=== PATIENT | male | born 1975 | race African-American/Black ===

== ENCOUNTER 2023-10-07 02:57 | Emergency (ER) | payer SELFPAY ==
[2023-10-07 03:01] VITALS: BP 134/104; PULSE 75; RESP 18; TEMP 36.6; O2SAT 98; BMI 29.0
--- NOTE | 2023-10-07 03:08 | PC.NURSE ---
pt states he was using some weather stripping and had a piece of the plastic piece nieto left middle finger 2 days ago. Now states pain, redness and swelling is increasing. States he took tylenol and motrin with no relief.
--- NOTE | 2023-10-07 03:18 | XR_ITS ---
The [address] [address] Patient Name: NHI NUÑEZ MRN: [id number] date: 1975 Sex: M Assigned Patient Location: ED.MAIN Current Patient Location: ED.MAIN Accession/Order Number: [id number] Exam Date: 10/07/2023 03:34 Report Date: 10/07/2023 03:55 At the request of: EVIE GUILLERMO Procedure: XR hand LT min 3V EXAM: XR hand LT min 3V HISTORY: rule out foreign body, distal adjacent to the nail COMPARISON: None. TECHNIQUE: 3 views of the left hand were obtained. FINDINGS: No acute fracture or dislocation is seen. The joint spaces are preserved. No definite retained foreign body is seen. XR/XR hand LT min 3V IMPRESSION: 1. No acute osseous abnormality or definite radiopaque foreign body is seen about the left hand or fingers. Electronically authenticated by: Dolly ANN Date: 10/07/2023 03:55
--- NOTE | 2023-10-07 03:21 | ED.UPPEXIN1 ---
HPI - Extremity Injury (Upper) General Chief Complaint: Extremity Injury, Upper Stated Complaint: LEFT HAND SWELLING Time Seen by Provider: 10/07/23 03:14 Source: patient Mode of arrival: walk-in Limitations: no limitations History of Present Illness HPI narrative: 48-year-old male presents for pain and swelling of the left middle finger. Two days ago he was putting some weather stripping on a doorway and a piece of it went under his cuticle. He pulled it out. Since then it's become red and swollen. He's had no drainage. It's throbbing and continuous and moderate. Related Data Previous Rx's Medication Instructions Recorded cephalexin 500 mg capsule 500 mg PO TID 7 days #21 caps 10/07/23 Allergies Allergy/AdvReac Type Severity Reaction Status Date / Time No Known Drug Allergies Allergy Verified 10/07/23 03:03 Review of Systems ROS Narrative A ten point review of systems is negative except as noted above. PFSH PFSH Social History Smoking status: Current every day smoker Exam Narrative Exam Narrative: Nurses note and vital signs reviewed and patient is not hypoxic. General: The patient appears well and in no apparent distress. Patient is resting comfortably on cart. Skin: Warm, dry, no pallor noted. There is no rash noted. Head: Normocephalic, atraumatic Eye: Normal conjunctiva, no drainage Ears, Nose, Mouth, and Throat: oral mucosa is moist. Nares patent. Cardiovascular: Regular Rate and Rhythm Respiratory: Patient is in no distress, no accessory muscle use, lungs are clear to auscultation, no wheezing, rales or rhonchi Back: non-tender GI: soft and nontender Musculoskeletal: left 3rd finger has swelling and erythema at the base of the nail. There is some erythema on the finger itself and the DIP and PIP have good range of motion. Neurological: A&O, normal speech Psychiatric: Cooperative Constitutional Vital Signs, click to edit/add: Last Vital Signs Temp 97.8 F 10/07/23 03:01 Pulse 75 10/07/23 03:01 Resp 18 10/07/23 03:01 BP 134/104 H 10/07/23 03:01 Pulse Ox 98 10/07/23 03:01 O2 Del Method Room Air 10/07/23 03:01 Course Vital Signs Vital signs: Vital Signs Temperature 97.8 F 10/07/23 03:01 Pulse Rate 75 10/07/23 03:01 Respiratory Rate 18 10/07/23 03:01 Blood Pressure 134/104 H 10/07/23 03:01 Pulse Oximetry 98 10/07/23 03:01 Oxygen Delivery Method Room Air 10/07/23 03:01 Temperature 97.8 F 10/07/23 03:01 Pulse Rate 75 10/07/23 03:01 Respiratory Rate 18 10/07/23 03:01 Blood Pressure 134/104 H 10/07/23 03:01 Pulse Oximetry 98 10/07/23 03:01 Oxygen Delivery Method Room Air 10/07/23 03:01 MDM - Extremity Injury (Upper) MDM Narrative Medical decision making narrative: the following procedure was performed by me. Finger block was applied with one percent lidocaine without epinephrine resulting in complete skin anesthesia. The paronychia was then cleansed with Betadine and using a #11 blade the eponychia was raised and purulent material was extracted. No consultations and he tolerated the procedure well. Differential Diagnosis Differential diagnosis: Likely other (paronychia, cellulitis) Imaging Data hand x-ray: My impression: x-ray of the hand on my interpretation shows no foreign body Discharge Plan Discharge Chief Complaint: Extremity Injury, Upper Clinical Impression: Paronychia Patient Disposition: Home, Self-Care Time of Disposition Decision: 03:46 Condition: Good Mode of Transportation: Private Vehicle Prescriptions / Home Meds: New cephalexin 500 mg capsule 500 mg PO TID 7 Days Qty: 21 0RF Instructions: Paronychia (ED) Additional Instructions: Warm soaks for ten minutes four times a day Stand Alone Forms: Portal Instructions Referrals: Physician,Non-Staff, MD [Primary Care Provider] - 1 week
[2023-10-07] MEDS: LIDOCAINE HCL 1% 100 MG/10 ML MDV INJ (03:30)
--- NOTE | 2023-10-07 03:47 | PC.NURSE ---
finger cleansed and lanced by dr swan
[2023-10-07] MEDS: ADACEL DIPH,PERTUSS(ACELL),TET VAC/PF 0.5 ML ADULT SYRINGE IM (03:54)
== END 2023-10-07 03:58 | disposition home or self-care (01) ==
PROVIDERS: Emergency Provider Emergency Medicine
DX: L03.012 Cellulitis of left finger (principal); F17.210 Nicotine dependence, cigarettes, uncomplicated; Z23 Encounter for immunization
CPT/HCPCS: 10060; 73130; 90471; 90715; 99284

== ENCOUNTER 2024-01-20 23:05 | Emergency (ER) | payer SELFPAY ==
[2024-01-20 23:06] VITALS: BP 146/93; PULSE 78; TEMP 37.2; O2SAT 97; BMI 29.0
--- OUTSIDE RECORDS SUMMARY | 2024-01-20 23:13 | XMS_ITS | CCD ---
Author Organization [facility] Care Team Providers Care Director Internal Control Name Role Phone REQUEST, DR NONE LISTED Primary Care Unavaila BRAD Vicente Admitting Unavailable BRAD SORIANO Attending Unavailable ARNOLDO LITTLEJOHN Consulting Unavailable MARANDA APONTE Consulting Unavailable Rosa Lopez Unavailable NO PCP, NO PCP Primary Care Unavailable JEVON GONZALEZ Attending Unavailable Medications Current Medications Medication Drug Class(es) Dates Sig (Normalized) Sig (Original) clindamycin 300 mg oral capsule (1 source) Lincosamide Antibacterial Start: 01-11-2023 take 1 capsule by mouth every eight hours Clindamycin HCl 300 MG 1 cap(s) Orally tid for 10 day(s) Dec, Active escitalopram 10 mg oral tablet (2 sources) Serotonin Reuptake Inhibitor Escitalopram Oxalate 10 MG 1 tablet Orally as needed for 30 days Active naproxen sodium 220 mg oral tablet (1 source) Nonsteroidal Anti-inflammatory Drug take 1 tablet by mouth every twelve hours at mealtime as needed Aleve 220 MG 1 tablet with food or milk as needed Orally every 12 hrs Active OLANZapine 7.5 mg oral tablet (2 sources) Atypical Antipsychotic take 1 tablet by mouth every twelve hours ZyPREXA 15 MG 1 tablet Orally BID Not-Taking OLANZapine 7.5 M G Oral for 30 Days Active predniSONE 20 mg oral tablet (1 source) Start: 01-11-2023 take 1 tablet by mouth every twelve hours predniSONE 20 MG 1 tablet Orally bid for 5 day(s) Dec, Active sulfamethoxazole 800 mg / trimethoprim 160 mg oral tablet (1 source) Dihydrofolate Reductase Inhibitor Antibacterial, Sulfonamide Antimicrobial Sulfamethoxazole -Trimethoprim 800-160 MG TAKE 1 TABLET BY MOUTH IN THE MORNING AND 1 TABLET BEFORE BEDTIME. DO ALL THIS FOR 7 DAYS. Oral for 7 Days Active Completed/Discontinued Medications Medication Drug Class(es) Dates Sig (Normalized) Sig (Original) FLUoxetine 20 mg oral capsule (1 source) Serotonin Reuptake Inhibitor take 1 capsule by mouth once daily in the evening FLUoxetine HCl 20 MG TAKE 1 CAPSULE BY MOUTH EVERY DAY IN THE EVENING Oral for 30 Days Not-Taking lithium carbonate 150 mg oral capsule (1 source) take 1 capsule by mouth twice daily [facility] [place] Carbonate 150 MG TAKE 1 CAPSULE BY MOUTH TWICE A DAY Oral for 30 Days Not-Taking Problems Problem Classification Problem Date Documented Da te Episodic/Chronic Administrative/social admission (1 source) Encounter for pre-employment examination Episodic Disorders of teeth and jaw (3 sources) Other specified disorders of teeth and supporting structures; Translations: [Toothache] Onset: 12-17-2023 Episodic Other aftercare (1 source) Other usp (current) drug therapy; Translations: [OTH CORRECTION CURRENT DRUG THERAPY] Onset: 04-11-2022 Episodic Other connective tissue disease (3 sources) Other specified soft tissue disorders; Translations: [OTHER SPEC SOFT TISSUE DISORDERS] Onset: 04-08-2022 Episodic Residual codes; unclassified (1 source) Localized edema; Translations: [LOCALIZED EDEMA] Onset: 04-11-2022 Episodic Skin and subcutaneous tissue infections (1 source) Local infection of the skin and subcutaneous tissue, unspecified Episodic Substance-related disorders (3 sources) Nicotine dependence, cigarettes, uncomplicated; Translations: [Nicotine dependence] Onset: 04-11-2022 Chronic Results Test Name Value Interpretation Reference Range Facil ity BNPon 04-08-2022 Natriuretic peptide B (Bld) [Mass/Vol] 50.0 pg/mL Normal <=450.0 [facility] Comment on above: Performed By: #### B CARDIAC CARE NURSE, CMP #### [facility] [address] [address] [address] Wili Dai CBC AUTO DIFFon 04-08-2022 BASO # 0.0 103/ul Normal 0.0-0.[address] [facility] Comment on above: Performed By: #### C BC #### [facility] [address] [place] [address] Dr. Wili Dai Basophils/100 WBC (Bld) 0.4 % Normal 0.2-2.[address] [facility] Comment on above: Performed By: #### C BC #### [facility] [address] [place] [address] Dr. Wili Dai EO # 0.1 103/ul Normal 0.0-0.[address] [facility] Comment on above: Performed By: #### C BC #### [facility] [address] [place] [address] Dr. Wili Dai Eosinophils/100 WBC (Bld) 1.4 % Normal 0.9-7.[address] [facility] Comment on above: Performed By: #### C BC #### [facility] [address] [place] [address] Dr. Wili Dai Erythrocyte distribution width (RBC) [Ratio] 13.2 % Normal 11.0-15.[address] [facility] Comment on above: Performed By: #### C BC #### [facility] [address] [place] [address] Dr. Wili Dai Hematocrit (Bld) [Volume fraction] 41.9 % Critically low 42.0-54.[address] [facility] Comment on above: Performed By: #### C BC #### [facility] [address] [place] [address] Dr. Wili Dai Hemoglobin (Bld) [Mass/Vol] 13.8 g/dL Critically low 14.0-18.[address] [facility] Comment on above: Performed By: #### C BC #### [facility] [address] [place] [address] Dr. Wili Dai IG # 0.04 10e3/ul Critically high 0.00-0.03 [facility] Comment on above: Performed By: #### C BC #### [facility] [address] [place] [address] Dr. Wili Dai IG % 0.5 % Normal 0.0-0.5 [facility] Comment on above: Performed By: #### C BC #### [facility] [address] [place] [address] Dr. Wili Dai LYMPH # 2.9 103/ul Normal 1.2-3.8 [facility] Comment on above: Performed By: #### C BC #### [facility] [address] [place] [address] Dr. Wili Dai Lymphocytes/100 WBC (Bld) 39.5 % Normal 20.5-60.0 [facility] Comment on above: Performed By: #### C BC #### [facility] [address] [place] [address] Dr. Wili Dai MANUAL DIFF REQ NO Normal [facility] Comment on above: Performed By: #### C BC #### [facility] [address] [place] [address] Dr. Wili Dai MCH (RBC) [Entitic mass] 30.2 pg Normal 25.9-34.0 [facility] Comment on above: Performed By: #### C BC #### [facility] [address] [place] [address] Dr. Wili Dai MCHC (RBC) [Mass/Vol] 32.9 g/dL Normal 29.9-35.2 [facility] Comment on above: Performed By: #### C BC #### [facility] [address] [place] [address] Dr. Wili Dai MCV (RBC) [Entitic vol] 91.7 fL Normal 80.0-94.0 [facility] Comment on above: Performed By: #### C BC #### [facility] [address] [place] [address] Dr. Wili Dai MONO # 0.4 103/ul Normal 0.3-0.8 [facility] Comment on above: Performed By: #### C BC #### [facility] [address] [place] [address] Dr. Wili Dai Monocytes/100 WBC (Bld) 5.0 % Normal 1.7-12.0 [facility] Comment on above: Performed By: #### C BC #### [facility] [address] [place] [address] Dr. Wili Dai NEUT # 3.9 103/ul Normal 1.4-6.5 [facility] Comment on above: Performed By: #### C BC #### [facility] [address] [place] [address] Dr. Wili Dai Neutrophils/100 WBC (Bld) 53.2 % Normal 43.0-75.[address] [facility] Comment on above: Performed By: #### C BC #### [facility] [address] [address] [address] Wili Dai Platelet mean volume (Bld) [Entitic vol] 8.8 fL Critically low 9.5-13.[address] [facility] Comment on above: Performed By: #### C BC #### [facility] [address] [address] [address] Wili Dai PLT 247 103/ul Normal 150-[address] [facility] Comment on above: Performed By: #### C BC #### [facility] [address] [address] [address] Wili aDi RBC 4.57 106/ul Critically low 4.70-6.10 [facility] Comment on above: Performed By: #### C BC #### [facility] [address] [address] [address] Wili Dai WBC 7.4 103/ul Normal 4.0-11.[address] [facility] Comment on above: Performed By: #### C BC #### [facility] [address] [place] [address] Dr. Wili Dai PROF 14(COMP METB)on 022 Albumin [Mass/Vol] 3.4 g/dL Normal 3.4-5.0 [facility] Comment on above: Performed By: #### B CARDIAC CARE NURSE, CMP #### [facility] [address] [place] [address] Dr. Wili Dai Albumin/Globulin [Mass ratio] 1.1 {ratio} Normal [facility] Comment on above: Performed By: #### B CARDIAC CARE NURSE, CMP #### [facility] [address] [place] [address] Dr. Wili Dai ALP [Catalytic activity/Vol] 82 U/L Normal 46-[address] [facility] Comment on above: Performed By: #### B CARDIAC CARE NURSE, CMP #### [facility] [address] [place] [address] Dr. Wili Dai ALT [Catalytic activity/Vol] 58 U/L Normal 16-[address] [facility] Comment on above: Performed By: #### B CARDIAC CARE NURSE, CMP #### [facility] [address] [place] [address] Dr. Wili aDi Anion gap [Moles/Vol] 9.1 mmol/L Normal [facility] Comment on above: Performed By: #### B CARDIAC CARE NURSE, CMP #### [facility] [address] [address] [address] Wili Dai AST [Catalytic activity/Vol] 35 U/L Normal 15-[address] [facility] Comment on above: Performed By: #### B CARDIAC CARE NURSE, CMP #### [facility] [address] [place] [address] Dr. Wili Dai Bilirubin [Mass/Vol] 0.2 mg/dL Normal 0.2-1.[address] [facility] Comment on above: Performed By: #### B CARDIAC CARE NURSE, CMP #### [facility] [address] [place] [address] Dr. Wili Dai Calcium [Mass/Vol] 8.4 mg/dL Critically low 8.5-10.1 [facility] Comment on above: Performed By: #### B CARDIAC CARE NURSE, CMP #### [facility] [address] [place] [address] Dr. Wili Dai Chloride [Moles/Vol] 106 mmol/L Normal 98-107 [facility] Comment on above: Performed By: #### B CARDIAC CARE NURSE, CMP #### [facility] [address] [place] [address] Dr. Wili Dai CO2 [Moles/Vol] 29.8 mmol/L Normal 21.0-32.0 [facility] Comment on above: Performed By: #### B CARDIAC CARE NURSE, CMP #### [facility] [address] [place] [address] Dr. Wili Dai Creatinine [Mass/Vol] 1.08 mg/dL Normal 0.70-1.[address] [facility] Comment on above: Performed By: #### B CARDIAC CARE NURSE, CMP #### [facility] [address] [place] [address] Dr. Wili Dai EGFR-AF LITHUANIAN >60 Normal >=60 [facility] Comment on above: Performed By: #### B CARDIAC CARE NURSE, CMP #### [facility] [address] [place] [address] Dr. Wili Dai EGFR-NON AF LITHUANIAN >60 Normal >=[address] [facility] Comment on above: Performed By: #### B CARDIAC CARE NURSE, CMP #### [facility] [address] [place] [address] Dr. Wiil Dai Globulin (S) [Mass/Vol] 3.0 g/dL Normal [facility] Comment on above: Performed By: #### B CARDIAC CARE NURSE, CMP #### [facility] [address] [place] [address] Dr. Wili Dai Glucose [Mass/Vol] 83 mg/dL Normal 74-106 [facility] Comment on above: Performed By: #### B CARDIAC CARE NURSE, CMP #### [facility] [address] [place] [address] Dr. Wili Dai Potassium [Moles/Vol] 3.9 mmol/L Normal 3.5-5.[address] [facility] Comment on above: Performed By: #### B CARDIAC CARE NURSE, CMP #### [facility] [address] [place] [address] Dr. Wili Dai Protein [Mass/Vol] 6.4 g/dL Normal 6.4-8.2 [facility] Comment on above: Performed By: #### B CARDIAC CARE NURSE, CMP #### [facility] [address] [place] [address] Dr. Wili Dai Sodium [Moles/Vol] 141 mmol/L Normal 136-145 [facility] Comment on above: Performed By: #### B CARDIAC CARE NURSE, CMP #### [facility] [address] [place] [address] Dr. Wili Dai Urea nitrogen [Mass/Vol] 11.0 mg/dL Normal 7.0-18.[address] [facility] Comment on above: Performed By: #### B CARDIAC CARE NURSE, CMP #### [facility] [address] [place] [address] Dr. Wili Dai Urea nitrogen/Creatinine [Mass ratio] 10.2 mg/mg Normal [facility] Comment on above: Performed By: #### B CARDIAC CARE NURSE, CMP #### [facility] [address] [address] [address] Wili Dai US FELIPE DOP LEG BILon 022 US FELIPE DOP LEG LORNA EXAM: US FELIPE DOP LEG LORNA HISTORY: This is a 46-year-old with bilateral leg swelling and tingling for the past 3 days. COMPARISON: None. TECHNIQUE: Multiple sonographic images of the deep veins of both lower extremities were obtained, supplemented with Doppler. FINDINGS: The deep veins of both lower extremities are fairly well-visualized the groin to the mid calf. No filling defect is identified to indicate a thrombus. There is normal compression augmentation of flow throughout both lower extremities. The saphenous veins are also patent. IMPRESSION: Unremarkable study. There is no direct or indirect evidence of deep vein thrombosis in the lower extremities at this time. Electronically authenticated by: MARANDA APONTE Date: 2022-04-08 20:29 Normal [facility] Vital Signs Date Time Vital Sign Value Performing Clinician Facility 07-14-2023 16:50-0400 Body height 187.96 cm Rosa Jessica Other [facility] Other 07-14-2023 16:50-0400 Body mass index (BMI) [Ratio] 30.63 kg/m2 Rosa Jessica Other [facility] Other 07-14-2023 16:50-0400 Body temperature 99.4 [degF] Rosa Lopez Other [facility] Other 07-14-2023 16:50-0400 Body weight 108.23 kg Rosa Lopez Other [facility] Other 07-14-2023 16:50-0400 Diastolic blood pressure 84 mm[Hg] Rosa Lopez Other [facility] Other 07-14-2023 16:50-0400 Respiratory rate 18 /min Rosa Lopez Other [facility] Other 07-14-2023 16:50-0400 SaO2% (BldA) [Mass fraction] 96 % Rosa Lopez Other [facility] Other 07-14-2023 16:50-0400 Systolic blood pressure 123 mm[Hg] Rosa Jamesmond Other [facility] Other 01-11-2023 12:30-0400 Body height 187.96 cm Rosa Jamesmond Other [facility] Other 01-11-2023 12:30-0400 Body mass index (BMI) [Ratio] 30.17 kg/m2 Rosa Jamesmond Other [facility] Other 01-11-2023 12:30-0400 Body temperature 98.8 [degF] Rosa Jamesmond Other [facility] Other 01-11-2023 12:30-0400 Body weight 106.6 kg Rosa Jamesmond Other [facility] Other 01-11-2023 12:30-0400 Respiratory rate 18 /min Rosa Jamesmond Other [facility] Other 01-11-2023 12:30-0400 SaO2% (BldA) [Mass fraction] 97 % Rosa Jessica Other [facility] Other Encounters Encounter Date Encounter Type Care Provider Facility Start: 12-17-2023 End: 12-17-2023 Emergency department patient visit NO PCP NO PCP [facility] Start: 07-14-2023 End: 07-14-2023 ambulatory Rosa Jessica Other [facility] Other Start: 07-14-2023 Office outpatient vi sit 15 minutes Rosa Jessica [facility] Start: 01-11-2023 End: 01-11-2023 ambulatory Rosa Jessica Other [facility] Other Start: 01-11-2023 Office outpatient ne w 20 minutes Rosa Jessica [facility] Start: 04-08-2022 End: 04-08-[address] NONE LISTED REQUEST Facility: Payers Date Payer Category Payer Unknown [id number] 1975 Unknown [id number] 1975 Unknown [id number] 1959 Unknown [id number] Private Health Insurance [id number] Social History Date Type Detail Facility Unknown if ever smoked [facility] Other Sex Assigned At Sex Assigned At Bir th [facility] Other Evaluation note 07-14-2023 Note Date & Type Note Facility 07-14-2023 Evaluation note Encounter Date Diagnosis Assessment Notes Jun, Pre-employment examination (ICD-10 - Z02.1) [facility] Other Evaluation note 01-11-2023 Note Date & Type Note Facility 01-11-2023 Evaluation note Encounter Date Diagnosis Assessment Notes Dec, Skin lesion, infected (ICD-10 - L08.9) Drink plenty fluids, get plenty of rest. Stop the Bactrim, take the clindamycin and prednisone as prescribed until gone. Follow-up with your family physician if no improvement in 2 to 3 days Dec, Other MRSA home care material was printed [facility] Other History general Narrative - Reported 02-16-2018 Note Date & Type Note Facility 02-16-2018 History general N arrative - Reported Type Medical History Anxiety Medical History HX torn meniscus Surgical History RT knee surgery: torn meniscus x2 1998 Surgical History rotator cuff tear repair Hospitalization History [address] [place] [address] [place] [facility] vatFebruary 2018 [facility] Other Summary Purpose Family History No Family History Records FoundNo Family History Records Found Advance Directives No Advanced Directives Records FoundNo Advanced Directives Records Found Additional Source Comments (unrecognized sect ion and content) No Status Records FoundNo Status Records Found INFORMATION SOURCE (unrecogn ized section and content) DATE CREATED AUTHOR 04/11/2022 [facility] DATE CREATED AUTHOR AUTHOR'S ORGANIZ ATION 12/17/2023 [facility] REASON FOR VISIT (unrecogniz ed section and content) ALLERGIC REACTION TO MEDSPHY SICAL FOR RECORDS PERTAINING TO PATIENTS WHO ARE OR HAVE BEEN ENROLLED IN A CHEMICAL DEPENDENCY/SUBSTANCEABUSE PROGRAM, SOME INFORMATION MAY BE OMITTED. This clinical summary was aggregated from multiple sources. Caution should be exercised in using it in the provision of clinical care. This summary normalizes information from multiple sources, and as a consequence, information in this document may materially change the coding, format and clinical context of patient data. In addition, data may be omitted in some cases. CLINICAL DECISIONS SHOULD BE BASED ON THE PRIMARY CLINICAL RECORDS. [facility] provides no warranty or guarantee of the accuracy or completeness of information in this document.
--- NOTE | 2024-01-20 23:27 | ED_ITS ---
HPI - Psych General Chief Complaint: Psychiatric Symptoms Stated Complaint: SUICIDE Time Seen by Provider: 01/20/24 23:21 Source: Reports patient and EMR Mode of arrival: ambulance Limitations: Reports no limitations History of Present Illness HPI Narrative: history of mental illness. States he use to take medication in the past but did not like how it made him feel. [place] it clouded his judgement. Usually smokes marijuana to self medicate. has auditory hallucinations. Wont elaborate what changed today resulting in his coming to the ED via [facility] no reported history of suicidal or homicidal thoughts. Patient is pacing in his room Related Data Allergies Allergy/AdvReac Type Severity Reaction Status Date / Time No Known Drug Allergies Allergy Verified 01/20/24 23:10 Review of Systems ROS Status of ROS 10 or more systems reviewed and unremark able except as noted in history and below [facility] PFS Social History Smoking status: Current every day smoker Exam Constitutional Vital Signs, click to edit/add: Last Vital Signs Temp 99 F 01/20/24 23:06 Pulse 87 01/21/24 00:42 Resp 16 01/21/24 00:42 BP 146/93 H 01/20/24 23:06 Pulse Ox 97 01/20/24 23:06 O2 Del Method Room Air 01/20/24 23:06 Common normals: average body habitus, oriented x3, no limitations, healthy appearing, alert and well nourished [facility] Common normals: normocephalic and head/scalp atraumatic Eye Common normals: EOMs intact bilaterally and conjunctivae normal Respiratory Common normals: normal respiratory effort, no retractions, no use of accessory muscles and clear to auscultation bilaterally Cardio Common normals: regular rate, regular rhythm, S1 normal heart sound and S2 normal heart sound Extremity Common normals: normal to inspection and full ROM Neuro Common normals: oriented x3, CN's II-XII intact bilaterally, moves all extremities and no focal motor deficits Psych Activity/motor behavior: appropriate eye contact Mood and affect: depressed mood Course Vital Signs Vital signs: Vital Signs Temperature 99 F 01/20/24 23:06 Pulse Rate 78 01/20/24 23:06 Respiratory Rate 18 01/20/24 23:06 Blood Pressure 146/93 H 01/20/24 23:06 Pulse Oximetry 97 01/20/24 23:06 Oxygen Delivery Method Room Air 01/20/24 23:06 Temperature 99 F 01/20/24 23:06 Pulse Rate 87 01/21/24 00:42 Respiratory Rate 16 01/21/24 00:42 Blood Pressure 146/93 H 01/20/24 23:06 Pulse Oximetry 97 01/20/24 23:06 Oxygen Delivery Method Room Air 01/20/24 23:06 MDM - Psych MDM Narrative Medical decision making narrative: patient presents with acute nonspecified psychosis. Hearing voices and responding to them. Given Ativan in the department because he was not able to sit still and was pacing. Patient accepted at [address] Lab Data Labs: Lab Results 01/20/24 01/20/24 Range/Units 22:39 23:25 WBC 13.4 H (4.0-11.0) 10^3/uL RBC 4.43 L (4.70-6.10) 10^6/uL Hgb 13.7 L (14.0-18.0) g/dL Hct 42.4 (42.0-54.0) % MCV 95.7 H (80.0-94.0) fL MCH 30.9 (25.9-34.0) pg MCHC 32.3 (29.9-35.2) g/dL RDW 12.4 (11.0-15.0) % Plt Count 232 (150-450) 10^3/uL MPV 9.5 (9.5-13.5) fL Neut % (Auto) 68.1 (43.0-75.0) % Lymph % (Auto) 25.6 (20.5-60.0) % [place] % (Auto) 5.7 (1.7-12.0) % Eos % (Auto) 0.1 L (0.9-7.0) % Baso % (Auto) 0.2 (0.2-2.0) % Neut # (Auto) 9.1 H (1.4-6.5) 10^3/uL Lymph # (Auto) 3.4 (1.2-3.8) 10^3/uL [place] # (Auto) 0.8 (0.3-0.8) 10^3/uL Eos # (Auto) 0.0 (0.0-0.7) 10^3/uL Baso # (Auto) 0.0 (0.0-0.1) 10^3/uL Abs Immat Gran (auto) 0.04 H (0.00-0.03) 10^3/uL Imm/Tot Granulo (auto) 0.3 (0.0-0.5) % Sodium 135 L (136-145) mmol/L Potassium 3.8 (3.5-5.1) mmol/L Chloride 99 (98-107) mmol/L Carbon Dioxide 25.1 (21.0-32.0) mmol/L Anion Gap 14.7 BUN 10.0 (7.0-18.0) mg/dL Creatinine 1.18 (0.70-1.30) mg/dL Est GFR ( Amer) >60 (>=60) Est GFR (Non-Af Amer) >60 (>=60) BUN/Creatinine Ratio 8.5 Glucose 107 H (74-106) mg/dL Calcium 9.6 (8.5-10.1) mg/dL Salicylates 4.5 (<=19.9) mg/dL Urine Opiates Screen Negative (NEGATIVE) Ur Buprenorphine Scrn Negative (NEGATIVE) Ur Oxycodone Screen Negative (NEGATIVE) Urine Methadone Screen Negative (NEGATIVE) Acetaminophen <2.8 L (10.0-30.0) ug/mL Ur Barbiturates Screen Negative (NEGATIVE) U Tricyclic Antidepress Negative (NEGATIVE) Ur Phencyclidine Scrn Negative (NEGATIVE) Ur Amphetamines Screen Negative (NEGATIVE) U Methamphetamines Scrn Negative (NEGATIVE) U Benzodiazepines Scrn Negative (NEGATIVE) Urine Cocaine Screen Negative (NEGATIVE) U Cannabinoids Screen Positive A (NEGATIVE) Ethanol Quant <3 mg/dL Discharge Plan Discharge Chief Complaint: Psychiatric Symptoms Clinical Impression: Acute psychosis Patient Disposition: [facility]
--- NOTE | 2024-01-20 23:31 | ECG_ITS ---
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
[2024-01-20 23:45] LABS: Basophils Percent Auto 0.2 % (0.2-2.0); Eosinophils Percent Auto 0.1 % (0.9-7.0); Hematocrit 42.4 % (42.0-54.0); Hemoglobin 13.7 g/dL (14.0-18.0); Immature Granulocytes Abs Auto 0.04 10^3/uL (0.00-0.03); Immature Granulocytes Pct Auto 0.3 % (0.0-0.5); Lymphocytes Absolute Auto 3.4 10^3/uL (1.2-3.8); Lymphocytes Percent Auto 25.6 % (20.5-60.0); Mean Corpuscular HGB Conc 32.3 g/dL (29.9-35.2); Mean Corpuscular Hemoglobin 30.9 pg (25.9-34.0); Mean Corpuscular Volume 95.7 fL (80.0-94.0); Mean Platelet Volume 9.5 fL (9.5-13.5); Monocytes Absolute Auto 0.8 10^3/uL (0.3-0.8); Monocytes Percent Auto 5.7 % (1.7-12.0); Neutrophils Absolute Auto 9.1 10^3/uL (1.4-6.5); Neutrophils Percent Auto 68.1 % (43.0-75.0); Platelet Count 232 10^3/uL (150-450); Red Blood Count 4.43 10^6/uL (4.70-6.10); Red Cell Distribution Width 12.4 % (11.0-15.0); White Blood Count 13.4 10^3/uL (4.0-11.0)
[2024-01-20 23:46] LABS: Amphetamine Screen Urine NEGATIVE (NEGATIVE); Barbiturates Screen Urine NEGATIVE (NEGATIVE); Benzodiazepines Screen Urine NEGATIVE (NEGATIVE); Buprenorphine Screen Urine NEGATIVE (NEGATIVE); Cannabinoid Screen Urine POSITIVE (NEGATIVE); Cocaine Screen Urine NEGATIVE (NEGATIVE); Methadone Screen Urine NEGATIVE (NEGATIVE); Methamphetamines Screen Urine NEGATIVE (NEGATIVE); Opiate Screen Urine NEGATIVE (NEGATIVE); Oxycodone Screen Urine NEGATIVE (NEGATIVE); Phencyclidine Screen Urine NEGATIVE (NEGATIVE); Tricyclic Antidepressant Urine NEGATIVE (NEGATIVE)
[2024-01-20] MEDS: LORAZEPAM 1 MG TABLET 2 MG PO (23:59)
[2024-01-21 00:01] LABS: Acetaminophen <2.8 ug/mL (10.0-30.0); Anion Gap 14.7; BUN Creatinine Ratio 8.5; Calcium 9.6 mg/dL (8.5-10.1); Carbon Dioxide 25.1 mmol/L (21.0-32.0); Chloride 99 mmol/L (98-107); Estimated GFR (African America >60 (>=60); Estimated GFR (Non-African Ame >60 (>=60); Ethanol <3 mg/dL; Glucose 107 mg/dL (74-106); Potassium 3.8 mmol/L (3.5-5.1); Salicylate 4.5 mg/dL (<=19.9); Sodium 135 mmol/L (136-145)
[2024-01-21 00:42] VITALS: PULSE 79; PULSE 87
== END 2024-01-21 03:02 ==
PROVIDERS: Emergency Provider Internal Medicine
DX: F23 Brief psychotic disorder (principal); F17.210 Nicotine dependence, cigarettes, uncomplicated
CPT/HCPCS: 36415; 80048; 80179; 80307; 80320; 80329; 85025; 93005; 99285

== ENCOUNTER 2024-02-17 11:15 | Emergency (ER) | payer OTHER, SELFPAY ==
[2024-02-17 11:20] VITALS: BP 150/90; PULSE 62; O2SAT 98; BMI 29.5
--- OUTSIDE RECORDS SUMMARY | 2024-02-17 11:27 | XMS_ITS | CCD ---
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 Name Role Phone REQUEST, DR NONE LISTED Primary Care Unavaila BRAD Vicente Admitting Unavailable BRAD SORIANO Attending Unavailable ARNOLDO LITTLEJOHN Consulting Unavailable MARANDA APONTE Consulting Unavailable Rosa Lopez Unavailable NO PCP, NO PCP Primary Care Unavailable JEVON GONZALEZ Attending Unavailable NON STAFF Primary Care Provider UnavailMD Aditya Omer Admit Provider [phone] MD Aditya Duarte Attending Provider [phone] John Gallegos Attending Unavailab Aditya Reynolds Admitting Unavailable NON STAFF Primary Care Unavailable Medications Current Medications Medication Drug Class(es) Dates Sig (Normalized) Sig (Original) ARIPiprazole 10 mg oral tablet (1 source) Atypical Antipsychotic Start: 01-24-2024 take 10 mg by mouth at bedtime Aripiprazole Active 10 MG PO Bedtime 15 15 January 24, 2024 12:00am clindamycin 300 mg oral capsule (1 source) [...] as needed Orally every 12 hrs Active [place] (No Known Home Meds) (1 source) Start: 02-19-2018 [place] (No Known Home Meds) Active February 19, 2018 12:00am predniSONE 20 mg oral tablet (1 source) Start: 01-11-2023 take 1 tablet by mouth every twelve hours predniSONE 20 MG 1 tablet Orally bid for 5 day(s) Dec, Active sulfamethoxazole 800 mg / trimethoprim 160 mg oral tablet (1 source) Dihydrofolate Reductase Inhibitor Antibacterial, Sulfonamide Antimicrobial Sulfamethoxazole- Trimethoprim 800-160 MG TAKE 1 TABLET BY MOUTH IN THE MORNING AND 1 TABLET BEFORE BEDTIME. DO ALL THIS FOR 7 DAYS. Oral for 7 Days Active traZODone hydrochloride 50 mg oral tablet (1 source) Serotonin Reuptake Inhibitor Start: 01-24-2024 take 50 mg by mouth once daily at bedtime Trazodone Active 50 MG PO Daily at bedtime 15 15 January 24, 2024 12:00am Completed/Discontinued Medications Medication Drug Class(es) Dates Sig [...] take 1 capsule by mouth twice daily [place] Carbonate 150 MG TAKE 1 CAPSULE BY MOUTH TWICE A DAY Oral for 30 Days Not-Taking OLANZapine 10 mg oral tablet (3 sources) Atypical Antipsychotic Start: 02-21-2018 End: 01-21-2024 take 10 mg by mouth once daily at bedtime Olanzapine Discontinued 10 MG PO Daily at bedtime February 21, 2018 12:00am January 21, 2024 5:19am take 1 tablet by laura every twelve hours ZyPREXA 15 MG 1 tablet Orally BID Not-Taking OLANZapine 7.5 M G Oral for 30 Days Active Problems Problem Classification Problem Date Documented Date Episodic/Chronic Administrative/social admission (1 source) Encounter for pre-employment examination Episodic Disorders of teeth and jaw (3 sources) Other specified disorders of teeth and supporting structures; Translations: [Toothache] Onset: 12-17-2023 Episodic Other aftercare (1 source) 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; Translations: [OTH FDC CURRENT DRUG THERAPY] Onset: 04-11-2022 Episodic Other connective tissue disease (3 sources) Other specified soft tissue disorders; Translations: [OTHER SPEC SOFT TISSUE DISORDERS] Onset: 04-08-2022 Episodic Residual codes; unclassified (1 source) Localized edema; Translations: [LOCALIZED EDEMA] Onset: 04-11-2022 Episodic Schizophrenia and other psychotic disorders (4 sources) Psychotic disorder; Translations: [Unspecified psychosis not due to a substance or known physiological condition] Onset: 01-21-2024 08-30-2023 Chronic Skin and subcutaneous tissue infections (1 source) Local infection of the skin and subcutaneous tissue, unspecified Episodic Substance-related disorders (3 sources) Nicotine dependence, cigarettes, uncomplicated; Translations: [Nicotine dependence] Onset: 04-11-2022 Chronic Results Test Name Value Interpretation Reference Range Facility Alanine aminotransferase [En zymatic activity/volume] in Serum or PlasmaOrdered By: Aditya Duarte on 01-22-2024 ALT [Catalytic activity/Vol] 17 U/L 7-52 [facility] Albumin [Mass/volume] in Ser um or Plasma by Bromocresol green (BCG) dye binding methoOrdered By: Aditya Duarte on 01-22-2024 Albumin BCG dye [Mass/Vol] 4.1 g/dL 3.5-5.7 [facility] Alkaline phosphatase [Enzyma tic activity/volume] in Serum or PlasmaOrdered By: Aditya Duarte on 01-22-2024 ALP [Catalytic activity/Vol] 92 U/L 34-104 [facility] Aspartate aminotransferase [ Enzymatic activity/volume] in Serum or PlasmaOrdered By: Aditya Duarte on 01-22-2024 AST [Catalytic activity/Vol] 18 U/L 13-39 [facility] Bilirubin.direct [Mass/volum e] in Serum or PlasmaOrdered By: Aditya Duarte on 01-22-2024 Bilirubin.direct [Mass/Vol] 0.10 mg/dL 0.03-0.18 [facility] Bilirubin.total [Mass/volume ] in Serum or PlasmaOrdered By: Aditya Duarte on 01-22-2024 Bilirubin [Mass/Vol] 0.4 mg/dL 0.3-1.0 [facility] Cholesterol [Mass/volume] in Serum or PlasmaOrdered By: Aditya Duarte on 01-22-2024 Cholesterol [Mass/Vol] 114 mg/dL 140-200 [facility] Comment on above: Chol less than 200 m g/dl low riskChol 201-239 mg/dl borderline riskChol 240 mg/dl and greater high risk Cholesterol in LDL Calc [Mas s/Vol]Ordered By: Aditya Duarte on 01-22-2024 Cholesterol in LDL [Mass/Vol] 54 mg/dL 0-100 [facility] Comment on above: LDL ATP III CLASSIFI CATIONLDL less than 100 mg/dL OptimalLDL 100-129 mg/dL Near or above optimalLDL 130-159 mg/dL Borderline highLDL 160-189 mg/dL HighLDL greater than 189 mg/dL Very high Cholesterol in VLDL Calc [Ma ss/Vol]Ordered By: Aditya Duarte on 01-22-2024 Cholesterol in VLDL [Mass/Vol] 25 mg/dL [facility] Globulin Calc (S) [Mass/Vol] Ordered By: Aditya Duarte on 01-22-2024 Globulin (S) [Mass/Vol] 2.5 g/dL [facility] Hepatic Panelon 01-22-2024 Albumin [Mass/Vol] 4.1 g/dL Normal 3.5-5.7 [facility] Comment on above: Performed By: #### T SH3 wRFLX, [id number], LIPID, HEPATIC #### [facility] [address] [place] [address] [place] Albumin/Globulin [Mass ratio] 1.6 {ratio} Normal [facility] Comment on above: Performed By: #### T SH3 wRFLX, [id number], LIPID, HEPATIC #### [facility] [address] [place] [id number] [place] ALP [Catalytic activity/Vol] 92 U/L Normal 34-104 [facility] Comment on above: Performed By: #### T SH3 wRFLX, [id number], LIPID, HEPATIC #### [facility] [address] [place] [id number] [place] ALT [Catalytic activity/Vol] 17 U/L Normal 7-52 [facility] Comment on above: Performed By: #### T SH3 wRFLX, [id number], LIPID, HEPATIC #### [facility] [address] [place] [id number] [place] AST [Catalytic activity/Vol] 18 U/L Normal 13-39 [facility] Comment on above: Performed By: #### T SH3 wRFLX, [id number], LIPID, HEPATIC #### [address] Bilirubin [Mass/Vol] 0.4 mg/dL Normal 0.3-1.0 [facility] Comment on above: Performed By: #### T SH3 wRFLX, [id number], LIPID, HEPATIC #### [address] Bilirubin,Indirect 0.3 mg/dL Normal [facility] Comment on above: Performed By: #### T SH3 wRFLX, [id number], LIPID, HEPATIC #### [address] Bilirubin.indirect [Mass/Vol] 0.10 mg/dL Normal 0.03-0.18 [facility] Comment on above: Performed By: #### T SH3 wRFLX, [id number], LIPID, HEPATIC #### [address] Globulin (S) [Mass/Vol] 2.5 g/dL Normal [facility] Comment on above: Performed By: #### T SH3 wRFLX, [id number], LIPID, HEPATIC #### [address] Protein [Mass/Vol] 6.6 g/dL Normal 6.4-8.9 [facility] Comment on above: Performed By: #### T SH3 wRFLX, [id number], LIPID, HEPATIC #### [address] Lipid Panelon 01-22-2024 Cholesterol [Mass/Vol] 114 mg/dL Low 140-200 [facility] Comment on above: Result Comment: Chol less than 200 mg/dl low risk Chol 201-239 mg/dl borderline risk Chol 240 mg/dl and greater high risk Performed By: #### T SH3 wRFLX, [id number], LIPID, HEPATIC #### [address] [place] [address] [place] Cholesterol in HDL [Mass/Vol] 34 mg/dL Normal 23-92 [facility] Comment on above: Result Comment: HDL CHOL ATP-III CLASSIFICATION Cardiovascular Risk HDL > or equal to 60 mg/dL LOW HDL < 40 mg/dL HIGH Performed By: #### T SH3 wRFLX, [id number], LIPID, HEPATIC #### [facility] [address] Cholesterol.total/Chol esterol in HDL [Mass ratio] 3.4 {ratio} Normal <5.0 [facility] Comment on above: Performed By: #### T SH3 wRFLX, [id number], LIPID, HEPATIC #### [facility] [address] LDL Cholesterol,Calculated 54 mg/dL Normal 0-100 [facility] Comment on above: Result Comment: LDL ATP III CLASSIFICATION LDL less than 100 mg/dL Optimal LDL 100-129 mg/dL Near or above optimal LDL 130-159 mg/dL Borderline high LDL 160-189 mg/dL High LDL greater than 189 mg/dL Very high Performed By: #### T SH3 wRFLX, [id number], LIPID, HEPATIC #### [facility] [address] [place] [address] [place] Triglyceride w/Reflex 129 mg/dL Normal 0-149 [facility] Comment on above: Result Comment: TRIG ATP III CLASSIFICATION TRIG less than 150 mg/dL Normal TRIG 150-199 mg/dL Borderline high TRIG 200-500 mg/dL High TRIG greater than 500 mg/dL Very high Standard traceable to the Center for Disease Conrtrol and Prevention (CDC) test method. Performed By: #### T SH3 wRFLX, [id number], LIPID, HEPATIC #### [facility] [address] [place] [id number] [place] VLDL CHOLESTEROL 25 mg/dL Normal [facility] Comment on above: Performed By: #### T SH3 wRFLX, [id number], LIPID, HEPATIC #### [facility] [address] [place] [id number] [place] Protein [Mass/volume] in Ser um or PlasmaOrdered By: Aditya Duarte on 01-22-2024 Protein [Mass/Vol] 6.6 g/dL 6.4-8.9 [facility] Serum or plasma albumin/glob ulin mass ratioOrdered By: Aditya Duarte on 01-22-2024 Albumin/Globulin [Mass ratio] 1.6 {ratio} [facility] Serum or plasma high density lipoprotein (HDL) cholesterol measurementOrdered By: Aditya Duarte on 01-22-2024 Cholesterol in HDL [Mass/Vol] 34 mg/dL 23-92 [facility] Comment on above: HDL CHOL ATP-III CLA SSIFICATION Cardiovascular RiskHDL > or equal to 60 mg/dL LOWHDL < 40 mg/dL HIGH Serum or plasma non-glucuron idated bilirubin measurement (mass/volume)Ordered By: Aditya Duarte on 01-22-2024 Bilirubin.indirect [Mass/Vol] 0.3 mg/dL [facility] Serum or plasma total choles terol/high density lipoprotein (HDL) cholesterol mass ratOrdered By: Aditya Duarte on 01-22-2024 Cholesterol.total/Chol esterol in HDL [Mass ratio] 3.4 {ratio} <5.0 [facility] Thyroid Stim Hormone w/Rflxo n 01-22-2024 Thyroid Stim Hormone w/Rflx 1.01 u[iU]/mL Normal 0.45-5.33 [facility] Comment on above: Performed By: #### T SH3 wRFLX, [id number], LIPID, HEPATIC #### [address] Thyrotropin [Units/volume] i n Serum or PlasmaOrdered By: Aditya Duarte on 01-22-2024 TSH Qn 1.01 m[IU]/L 0.45-5.33 [facility] Triglyceride [Mass/volume] i n Serum or PlasmaOrdered By: Aditya Duarte on 01-22-2024 Triglyceride [Mass/Vol] 129 mg/dL 0-149 [facility] Comment on above: TRIG ATP III CLASSIF ICATIONTRIG less than 150 mg/dL NormalTRIG 150-199 mg/dL Borderline highTRIG 200-500 mg/dL High TRIG greater than 500 mg/dL Very highStandard traceable to the Center for Disease Conrtrol and Prevention (CDC) test method. Vitamin D 25 Hydroxy Totalon 01-22-2024 Vitamin D 25 Hydroxy Total 12.0 ng/mL Low 30-100 [facility] Comment on above: Result Comment: TOM MIN D STATUS 25(OH)VITAMIN D RANGE (ng/mL) Deficient <20 Insufficient 20 to <30 Sufficient 30 to 100 Reference: Qian Rico, Julius MATOS, et al. Evaluation,treatment, and prevention of vitamin D deficiency; an Endocrine Society clinical practice guideline. JCEM. 2010; 96(7):1911-. PERFORMED BY: [facility] [address] [place] [address] PATHOLOGIST JOB COUNSELOR ALEXANDREA GUTHRIE M.D. Performed By: #### T SH3 wRFLX, [id number], LIPID, HEPATIC #### [facility] [address] Vitamin D+Metabolites [Mass/ volume] in Serum or PlasmaOrdered By: Aditya Duarte on 01-22-2024 Vitamin D+Metabolites [Mass/Vol] 12.0 ng/mL 30-100 [facility] Comment on above: VITAMIN D STATUS 25( [place])VITAMIN D RANGE (ng/mL) Deficient <20 Insufficient 20 to <30Sufficient 30 to 100Reference: Qian Rico, Julius MATOS, et al. Evaluation,treatment, and prevention of vitamin D deficiency; an Endocrine Society clinical practice guideline. JCEM. 2010; 96(7):1911-30. BNPon 04-08-2022 Natriuretic peptide B (Bld) [Mass/Vol] 50.0 pg/mL Normal <=450.0 [facility] Comment on above: Performed By: #### B ESCAPEMENT MAKER, CMP #### [facility] [address] [place] [address] [address] Wili Dai CBC AUTO DIFFon 04-08-2022 BASO # 0.0 103/ul Normal 0.0-0.1 [facility] Comment on above: Performed By: #### C BC #### [facility] [address] [place] [address] Dr. Wili Dai Basophils/100 WBC (Bld) 0.4 % Normal 0.2-2.0 [facility] Comment on above: Performed By: #### C BC #### [facility] [address] [place] [address] Dr. Wili Dai EO # 0.1 103/ul Normal 0.0-0.7 [facility] Comment on above: Performed By: #### C BC #### [facility] [address] [place] [address] Dr. Wili Dai Eosinophils/100 WBC (Bld) 1.4 % Normal 0.9-7.0 [facility] Comment on above: Performed By: #### C BC #### [facility] [address] [place] [address] Dr. Wili Dai Erythrocyte distribution width (RBC) [Ratio] 13.2 % Normal 11.0-15.0 [facility] Comment on above: Performed By: #### C BC #### [facility] [address] [place] [address] Dr. Wili Dai Hematocrit (Bld) [Volume fraction] 41.9 % Critically low 42.0-54.0 [facility] Comment on above: Performed By: #### C BC #### [facility] [address] [place] [address] Dr. Wili Dai Hemoglobin (Bld) [Mass/Vol] 13.8 g/dL Critically low 14.0-18.0 [facility] Comment on above: Performed By: #### C BC #### [facility] [address] [place] [address] Dr. Wili Dai IG # 0.04 10e3/ul Critically high 0.00-0.03 [facility] Comment on above: Performed By: #### C BC #### [facility] [address] [place] [address] Dr. Wili Dai IG % 0.5 % Normal 0.0-0.5 [facility] Comment on above: Performed By: #### C BC #### [facility] [address] [place] [address] Dr. Wili Dai LYMPH # 2.9 103/ul Normal 1.2-3.8 [facility] Comment on above: Performed By: #### C BC #### [facility] [address] [place] [address] Dr. Wili Dai Lymphocytes/100 WBC (Bld) 39.5 % Normal 20.5-60.0 [facility] Comment on above: Performed By: #### C BC #### [facility] [address] [place] [address] Dr. Wili Dai MANUAL DIFF REQ NO Normal [facility] Comment on above: Performed By: #### C BC #### [facility] [address] [place] [address] Dr. Wili Dai MCH (RBC) [Entitic mass] 30.2 pg Normal 25.9-34.0 [facility] Comment on above: Performed By: #### C BC #### [facility] [address] [place] [address] Dr. Wili Dai MCHC (RBC) [Mass/Vol] 32.9 g/dL Normal 29.9-35.2 [facility] Comment on above: Performed By: #### C BC #### [facility] [address] [place] [address] Dr. Wili Dai MCV (RBC) [Entitic vol] 91.7 fL Normal 80.0-94.0 [facility] Comment on above: Performed By: #### C BC #### [facility] [address] [place] [address] Dr. Wili Dai MONO # 0.4 103/ul Normal 0.3-0.8 [facility] Comment on above: Performed By: #### C BC #### [facility] [address] [place] [address] Dr. Wili Dai Monocytes/100 WBC (Bld) 5.0 % Normal 1.7-12.0 [facility] Comment on above: Performed By: #### C BC #### [facility] [address] [place] [address] Dr. Wili Dai NEUT # 3.9 103/ul Normal 1.4-6.5 [facility] Comment on above: Performed By: #### C BC #### [facility] [address] [place] [address] Dr. Wili Dai Neutrophils/100 WBC (Bld) 53.2 % Normal 43.0-75.0 [facility] Comment on above: Performed By: #### C BC #### [facility] [address] [place] [address] Dr. Wili Dai Platelet mean volume (Bld) [Entitic vol] 8.8 fL Critically low 9.5-13.5 [facility] Comment on above: Performed By: #### C BC #### [facility] [address] [place] [address] Dr. Wili Dai PLT 247 103/ul Normal 150-450 [facility] Comment on above: Performed By: #### C BC #### [facility] [address] [place] [address] Dr. Wili Dai RBC 4.57 106/ul Critically low 4.70-6.10 [facility] Comment on above: Performed By: #### C BC #### [facility] [address] [place] [address] Dr. Wili Dai WBC 7.4 103/ul Normal 4.0-11.0 [facility] Comment on above: Performed By: #### C BC #### [facility] [address] [place] [address] Dr. Wili Dai PROF 14(COMP METB)on 022 Albumin [Mass/Vol] 3.4 g/dL Normal 3.4-5.0 [facility] Comment on above: Performed By: #### B ESCAPEMENT MAKER, CMP #### [facility] [address] [place] [address] Dr. Wili Dai Albumin/Globulin [Mass ratio] 1.1 {ratio} Normal [facility] Comment on above: Performed By: #### B ESCAPEMENT MAKER, CMP #### [facility] [address] [place] [address] Dr. Wili Dai ALP [Catalytic activity/Vol] 82 U/L Normal 46-116 [facility] Comment on above: Performed By: #### B ESCAPEMENT MAKER, CMP #### [facility] [address] [place] [address] Dr. Wili Dai ALT [Catalytic activity/Vol] 58 U/L Normal 16-63 [facility] Comment on above: Performed By: #### B ESCAPEMENT MAKER, CMP #### [facility] [address] [place] [address] Dr. Wili Dai Anion gap [Moles/Vol] 9.1 mmol/L Normal [facility] Comment on above: Performed By: #### B ESCAPEMENT MAKER, CMP #### [facility] [address] [place] [address] Dr. Wili Dai AST [Catalytic activity/Vol] 35 U/L Normal 15-37 [facility] Comment on above: Performed By: #### B ESCAPEMENT MAKER, CMP #### [facility] [address] [place] [address] Dr. Wili Dai Bilirubin [Mass/Vol] 0.2 mg/dL Normal 0.2-1.0 [facility] Comment on above: Performed By: #### B ESCAPEMENT MAKER, CMP #### [facility] [address] [place] [address] Dr. Wili Dai Calcium [Mass/Vol] 8.4 mg/dL Critically low 8.5-10.1 [facility] Comment on above: Performed By: #### B ESCAPEMENT MAKER, CMP #### [facility] [address] [place] [address] Dr. Wili Dai Chloride [Moles/Vol] 106 mmol/L Normal 98-107 [facility] Comment on above: Performed By: #### B ESCAPEMENT MAKER, CMP #### [facility] [address] [place] [address] Dr. Wili Dai CO2 [Moles/Vol] 29.8 mmol/L Normal 21.0-32.0 [facility] Comment on above: Performed By: #### B ESCAPEMENT MAKER, CMP #### [facility] [address] [place] [address] Dr. Wili Dai Creatinine [Mass/Vol] 1.08 mg/dL Normal 0.70-1.30 [facility] Comment on above: Performed By: #### B ESCAPEMENT MAKER, CMP #### [facility] [address] [place] [address] Dr. Wili Dai EGFR-AF ISRAELI >60 Normal >=60 [facility] Comment on above: Performed By: #### B ESCAPEMENT MAKER, CMP #### [facility] [address] [address] [address] Wili Dai EGFR-NON AF ISRAELI >60 Normal >=60 [facility] Comment on above: Performed By: #### B ESCAPEMENT MAKER, CMP #### [facility] [address] [place] [address] Dr. Wili Dai Globulin (S) [Mass/Vol] 3.0 g/dL Normal [facility] Comment on above: Performed By: #### B ESCAPEMENT MAKER, CMP #### [facility] [address] [place] [address] Dr. Wili Dai Glucose [Mass/Vol] 83 mg/dL Normal 74-106 [facility] Comment on above: Performed By: #### B ESCAPEMENT MAKER, CMP #### [facility] [address] [place] [address] Dr. Wili Dai Potassium [Moles/Vol] 3.9 mmol/L Normal 3.5-5.1 [facility] Comment on above: Performed By: #### B ESCAPEMENT MAKER, CMP #### [facility] [address] [place] [address] Dr. Wili Dai Protein [Mass/Vol] 6.4 g/dL Normal 6.4-8.2 [facility] Comment on above: Performed By: #### B ESCAPEMENT MAKER, CMP #### [facility] [address] [place] [address] Dr. Wili Dai Sodium [Moles/Vol] 141 mmol/L Normal 136-145 [facility] Comment on above: Performed By: #### B ESCAPEMENT MAKER, CMP #### [facility] [address] [place] [address] Dr. Wili Dai Urea nitrogen [Mass/Vol] 11.0 mg/dL Normal 7.0-18.0 [facility] Comment on above: Performed By: #### B ESCAPEMENT MAKER, CMP #### [facility] [address] [address] [address] Wili Dai Urea nitrogen/Creatinine [Mass ratio] 10.2 mg/mg Normal [facility] Comment on above: Performed By: #### B ESCAPEMENT MAKER, CMP #### [facility] [address] [place], [place] [address] Dr. Wili Dai US FELIPE DOP LEG [...] by: MARANDA APONTE Date: 2022-04-08 20:29 Normal [facility] Vital Signs Date Time Vital Sign Value Performing Clinician Facility 01-24-2024 07:30-0400 Body temperature 97.3 [degF] [facility] 01-24-2024 07:30-0400 Diastolic blood pressure 88 mm[Hg] [facility] 01-24-2024 07:30-0400 Heart rate 78 /min [facility] 01-24-2024 07:30-0400 Respiratory rate 16 /min [facility] 01-24-2024 07:30-0400 SaO2% (BldA) [Mass fraction] 98 % [facility] 01-24-2024 07:30-0400 Systolic blood pressure 133 mm[Hg] [facility] 01-22-2024 15:15-0400 Body height 187.96 cm [facility] 01-22-2024 09:00-0400 Body weight 102.52 kg [facility] 07-14-2023 16:50-0400 Body height 187.96 cm Rosa Jessica Other [employer] Other 07-14-2023 16:50-0400 Body mass index (BMI) [Ratio] 30.63 kg/m2 Rosa Jessica Other [employer] Other 07-14-2023 16:50-0400 Body temperature 99.4 [degF] Rosa Jessica Other [employer] Other 07-14-2023 16:50-0400 Body weight 108.23 kg Rosa Jessica Other [employer] Other 07-14-2023 16:50-0400 Diastolic blood pressure 84 mm[Hg] Rosa Jessica Other [employer] Other 07-14-2023 16:50-0400 Respiratory rate 18 /min Rosa Jessica Other [employer] Other 07-14-2023 16:50-0400 SaO2% (BldA) [Mass fraction] 96 % Rosa Jessica Other [employer] Other 07-14-2023 16:50-0400 Systolic blood pressure 123 mm[Hg] Rosa Jessica Other [employer] Other 01-11-2023 12:30-0400 Body height 187.96 cm Rosa Jessica Other [employer] Other 01-11-2023 12:30-0400 Body mass index (BMI) [Ratio] 30.17 kg/m2 Rosa Jessica Other [employer] Other 01-11-2023 12:30-0400 Body temperature 98.8 [degF] Rosa Lopez Other [employer] Other 01-11-2023 12:30-0400 Body weight 106.6 kg Rosa Lopez Other [employer] Other 01-11-2023 12:30-0400 Respiratory rate 18 /min Rosa Lopez Other [employer] Other 01-11-2023 12:30-0400 SaO2% (BldA) [Mass fraction] 97 % Rosa Lopez Other [employer] Other Encounters Encounter Date Encounter Type Care Provider Facility Start: 01-21-2024 Non-patient / Non-visit [facility] Work Phone: Start: 01-21-2024 End: 01-24-2024 Evaluation and management of inpatient [place] Facility:[facility] Start: 01-21-2024 End: 01-24-2024 Evaluation and management of inpatient [facility] [place] [address] Work Phone: Start: 12-17-2023 End: 12-17-2023 Emergency department patient visit NO PCP NO PCP [facility] Start: 07-14-2023 End: 07-14-2023 ambulatory Rosa Lopez Other [employer] Other Start: 07-14-2023 Office outpatient visit 15 minutes Rosa Lopez [facility] Start: 01-11-2023 End: 01-11-2023 ambulatory Rosa Lopez Other [employer] Other Start: 01-11-2023 Office outpatient ne w 20 minutes Rosa Lopez [facility] Start: 04-08-2022 End: 04-08-[address] NONE LISTED REQUEST Facility: Plan of Treatment Date Care Activity Detail Author Start: 01-24-2024 [facility] Start: 01-21-2024 Hospital admission [facility] Patient Education Schizophrenia (DC) Know your Meds [facility] Work Phone: Patient referral [facility] Work Phone: Payers Date Payer Category Payer Self-pay [id number] 2020 Unknown [id number] 1975 Unknown [id number] 1975 Unknown [id number] 1959 Unknown [id number] Private Health Insurance [id number] Unknown Financial Counselor [id number] Unknown [id number] Social History Date Type Detail Facility Unknown if ever smoked [employer] [facility] Other Sex Assigned At Sex Assigned At Bir [facility] [employer] [facility] Other Start: 01-21-2024 Tobacco smoking status NHIS Smoker (finding) [facility] Start: 1975 Sex Assigned At Male [facility] Goals Date Patient Goal Desired Activity /State Functional Status Date Assessment Result Facility 01-24-2024 Functional status Patient at [facility] Work Phone: Mental Status Date Assessment Result Facility 01-24-2024 Cognitive function Cognitive Sta tus Patient at Baseline [facility] Work Phone: Discharge summary 01-24-2024 Note Date & Type Note Facility 01-24-2024 Discharge summary Note Date/Time January 24, 2024 8:00am [facility] [address] [place] [address] Discharge Summary Signed Patient: Reinier Higginbotham MR#: [id number] : 1975 Acct:[id number] Age/Sex: 48 / M Adm Date: 4 Loc: Room: [address] [place] [address]: Aditya Duarte MD Copies to: NON STAFF MD Aditya Prasad MD~ Providers Date of Discharge: 01/24/24 Discharging Provider: John Gallegos Primary Care Provider: NON STAFF Discharge Diagnosis (1) Schizophrenia: Final Diagnosis Final Discharge Diagnosis: Schizoaffective disorder Summary Hospital Course Hospital course: Mr. Higginbotham is a 48 year old male who presented due to concern for psychosis and hallucinations. Upon assessment, patient reported that he has been trying to help people. He reported that he had issues with cameras at his house that he did not know about. He reported that they are recording him and are trying to expose him as lazy. He reported that he disrespected a friend and disrespected himself. Reported that he has been hearing voices and the things that he hears ranged from negative things to sharing and having a good time. He denied any visual hallucinations at this time. He stated that he does have paranoid thoughts and did accuse staff of poisoning his food today. He reported that he sees his demise over and over again. He reported that he prays that he will in frontof everyone. Past psych history: Psychosis Past hospitalizations: Admits to prior psychiatric hospitalizations Past suicide attempts: Denies Family psych history: Reported family history of but unknown diagnosis Previous medications: Prozac, Lexapro, lithium, Zyprexa Alcohol and drug use: Reported medical marijuana and alcohol use occasionally Course of Treatment: The patient was familiar with the mental health therapy services available to him while on the unit and was encouraged to participate. We discussed medicationrisks, benefits, and indications in detail. He was open to trying psychopharmacological treatment. He was started on Abilify which helped with psychotic symptom and mood. He was offered Abilify Maintenna to help with compliance but he preferred the oral tablet. He felt that his symptoms improved on the current medication regimen, stating that his depressive symptoms were reduced and he became less anxious. His thought process was transparent on the exam. He described his mood as more motivated. He has been compliant with treatment and reported no side effects. His sleep and appetite were okay. The patient was attending groups and described them as helpful in building coping skills. He denied any access to firearms or lethal weapons. His symptoms improved, and his affect became brighter. He follows up with Dr. Soliz in [place], [place] He reported feeling more focused and clear minded . He was social with peers on the unit and indicated that he learned a lot to improve his mental health. Hefelt better than before coming to the hospital and hopeful about his future. He described both his depression and anxiety as mild, rating both 0 out of 10, with ten being the worst. He said his mental health symptoms are not interferingwith his ability to function. Staff noted improvement in his symptoms as documented in nursing. He has been denying SI/HI or AVH to multiple members of the treatment team. He did not exhibit any disorganized behavior nor appeared clarisa experiencing auditory hallucinations or expressing delusions. He did not showany behavior concerning silvana. He was much more insightful compared to the time of admission. He understands the importance of outpatient therapy to ensure the stability of symptoms. He denied suicidal or homicidal ideation and verbalized the intent to notify the staff if he has such thoughts. No suicidal or self-injurious behaviors occurred during inpatient treatment. Mr. Higginbotham said he will utilize resources, such as calling the hotline if he hasany SI/HI. He learned how to stay positive and manage his stress more healthily.I explained to the patient that hospital discharge does not mean medical care ends there. He needs consistent outpatient psychiatric follow-up, cognitive behavioral therapy, and PCP visits to ensure the stability of symptoms. Patient talked about his dog being a good support for him. Patient's illness, medication side effects, benefits and risks were reviewed with the patient prior to discharge. The patient voiced understanding of their diagnosis, the medications recommended along with the importance of medication compliance. The patient was counseled not to stop medications without the supervision of a psychiatrist. The patient was prenatal genetic counselor to follow-up with their outpatient medical provider as indicated. The patient was counseled that if there was an increase in mental health issues, depression, anxiety, medication side effects, self harm or thoughts of harm to others, the patient was not to harm them self or stop treatment, but to call [email or web address], 911 or come to the nearest emergency room. The patient also received information regarding advancedmental and medical health directives during this hospitalization to discuss their outpatient provider. The plan was discussed with the patient, the nurses and the social work department. The patient voiced agreement with the plan. Discharge disposition: Home ,coordinated by case management Safe discharge Planning: With the cessation of all suicidal ideation, improvements in mood, and cessationof any psychotic process, aftercare plans were solidified. The patient was able to formulate a believable safety plan. Discharge plans were discussed with the patient, his family, and the treatment team. All agreed with the discharge plan. On the day of discharge, he was evaluated and had no complaints. He denied any SI/HI. He felt hopeful and motivated and agreed to follow up with outpatient treatment as arranged by case management. Factors to be considered are the chronicity and severity of the symptoms and signs, associated comorbidity, and differential diagnosis-motivation to get in treatment, response to treatment, adherence to treatment recommendations, and using skills. The patient's verbal consent was provided. Suicide risk assessment: A thorough review of protective and risk factors was conducted during this admission. I discussed with the patient the following recommendations that would help reduce suicide, which include limiting the number of pills to a 14-day supply with one refill at the time of discharge to avoid potential overdose, involving family members in his care, consistent outpatient follow-up preferably within seven days of release, and his desire to live. He reported a good therapeutic alliance, good response to medication management and therapy, availability of local mental health services and willingness to follow up, lack of suicidal ideation, behavior, intent or plan, lack of impulsivity, agitation, or psychosis. The patient is future-oriented, has a great relationship with his dog and understands the importance of outpatient follow-up. He noted a better ability to manage his emotions and contract for safety. The presence of positive factors like family and clinton, lack of access to firearms, and desire to continue his treatment is consistent with a safe discharge plan. Psychiatric experts agree that it is impossible to predict suicide and violence in general. Given the chronic risk of suicide, we discussed a plan to help him with long-term safety. The patient is not suicidal or psychotic now. To help decrease his suicide and violence risk, as best I can, I am referring him for outpatient treatment, including but not limited to medication management for long-term follow-up to have somewhere to go and someone to manage him as symptoms and stressors develop. This is the best way to keep him alive. So, we discussed a crisis plan for future suicidality: at the first sign of distress, he will call the hotline; if this is not sufficient, he will call 911, then callfamily members or friends; ultimately, he will come to the ER. Violence Risk Assessment: Chronic: Gender Modifiable: good response to treatment, good therapeutic alliance, availability of local mental health services and willingness to follow up, lack of homicidal ideation (intent or plan) on the day of discharge and during hospitalization, lack of substance abuse, future oriented. No history of recent violence reported. Furthermore, No access to lethal means as currently have no weapons. No aggressive behavior during hospitalization. Has been social with peers on the unit and has been attending groups. Current Violence Risk Assessment: Low acute risk given known chronic and modifiable risk factors. Patient did not meet criteria for probate and his behavior has been overall appropriate on the unit. He has denied homicidal thoughts and has not exhibited any aggressive behavior. He is not an acute risk to himself or others evidencedby subjective and objective data during his hospitalization. MSE: Orientation: Alert and oriented to person, place, and time. Appearance/Behavior: Fair grooming and hygiene, calm, cooperative, engaged in the interview. Good eye contact. Normal psychomotor activity. Speech: regular rate, rhythm, volume, and tone. Non pressured. Knowledge: Appropriate for age and level of education Mood: okay Affect: reactive, mood-congruent Thought process: linear, logical, and goal-oriented Thought content: No SI/HI. No AVH. No delusions. He does not appear to be responding to internal stimuli. Concentration: Grossly intact based on track during the interview Associations: No loosening of associations Memory: Able to recall recent and remote historical information Insight: Fair, able to appreciate current symptoms and need for outpatient treatment Judgment: fair, agreed to follow treatment recommendations. Safety: The patient is not acutely psychotic, suicidal or homicidal and can continue treatment on an outpatient basis. He was made aware of the 10/04 emergency services of the crisis center and was advised to call 911 or go to the nearest ER in case of a crisis ( (including having thoughts of harming himself or others). Typical short- and long-term side effects of the proposed medication regimen, including contraindications and clinically significant interactions, were discussed with the patient. Side effects include but not limited to sedation, overdose, rash, movement disorders (TD, EPS), weight gain, and appetite changesand advised the patient not to drive or drink while taking these meds. Patient should reach out to medical provider if any of these side effects occur. Using drugs can increase risk of . We also discussed risk of overdose with this current med regimen. Patient understands that it is impossible to guarante an outcome with medications. Patient indicates an understanding that benefits outweigh the risks. Continue supportive therapy with some CBT techniques. Time spent discussing smoking cessation with patient: more than 10 minutes Condition Condition at Discharge: Stable Status at Discharge Functional status at discharge: independent ambulation Time Spent with Patient Time spent providing/coordinating discharge services (# min): 93 Discharge Plan Discharge Plan Patient Disposition: Home Activity: No Activity Restriction Diet: Regular Instructions: Know your Meds Prescriptions: No Action No known home meds Exam Physical Exam Vital Signs: Temp Pulse Resp BP Pulse Ox O2 Del Method 98.4 F 78 16 129/84 97 Room Air 01/23/24 20:40 01/23/24 20:40 01/23/24 20:40 01/23/24 20:40 01/23/24 20:40 01/23/24 20:40 Documented By: John Gallegos MD [id number] Signed By: <Electronically signed by John Gallegos MD> 01/24/24 0800 [facility] Work Phone: Progress note 01-23-2024 Note Date & Type Note Facility 01-23-2024 Progress note Note Date/Time January 23, 2024 7:43am [facility] [address] [place] [address] Psychiatry Progress Note Signed Patient: Reinier Higginbotham MR#: [id number] : 1975 Acct:[id number] Age/Sex: 48 / M Adm Date: 4 Loc: 1S Room: [address] [place] [address] Type : ADM IN Attending Dr: Aditya Duarte MD Copies to: ~ Date of Service: 01/23/2024 Subjective Subjective Narrative: Mr. Higginbotham said he is feeling that medications make him cloudy. We discussed switching Abilify to 10 mg PO HS instead of morning. He said he may call someoneto pick him tomorrow. He denied any SI/HI. Staff said he has been occasionally paranoid. He is not internally stimulated on exam. He believes lack of sleep combined with cannabis use made him psychotic prior to admission. He is benefiting from having some time off on the unit. He likes the groups on the unit. He misses spending time with his dog. He said his job has been stealing money from other co-workers and he talked to his drafter electronic about it. Mental Status: mental status grossly normal Mood: Anxious mood Affect: mood congruent affect Speech and Movement: speech and movement normal and speech clear Attitude: cooperative Thought Process: normal Thought Content: Denied hallucinations, no homicidality and no suicidality Insight: Fair Judgment: Fair Exam Physical Exam Vital Signs: Temp Pulse Resp BP Pulse Ox O2 Del Method 97.7 F 77 18 147/78 H 97 Room Air 01/22/24 19:30 01/22/24 19:30 01/22/24 19:30 01/22/24 19:30 01/22/24 19:30 01/22/24 19:30 Assessment/Plan Assessment/Plan (1) Schizophrenia: Plan Patient reports feeling better and denied paranoid thoughts and hallucinations. Denied SI/HI. Will switch Abilify 10 mg HS. May consider long-acting injection for compliance Patient reported stopped medication in the past because of how he felt Continue to monitor mental status Encourage group participation and medication compliance Risk benefits alternatives explained Documented By: John Gallegos MD [id number] Signed By: <Electronically signed by John Gallegos MD> 01/23/24 0743 [facility] Work Phone: Progress note 01-22-2024 Note Date & Type Note Facility 01-22-2024 Progress note Note Date/Time January 22, 2024 8:11am [facility] [address] [place] [address] Psychiatry Progress Note Signed Patient: Reinier Higginbotham MR#: [id number] : 1975 Acct:[id number] Age/Sex: 48 / M Adm Date: 4 Loc: 1S Room: [address] [place] [address] Type : ADM IN Attending Dr: Aditya Duarte MD Copies to: ~ Date of Service: 01/22/2024 Subjective Subjective Narrative: Mr. Higginbotham said he is feeling better and noted that Abilify is helping. He previously tried multiple meds and used to follow up with [facility]. He said psych meds made him feel zombie and wants to avoid polypharmacy. He talked about the physical nature of his job and needing to stay active. He denied feeling paranoid this morning or angry. Patient also mentioned his excessive cannabis use which likely prediosed him to having psychotic symptoms. Past psych history: Psychosis Past hospitalizations: Admits to prior psychiatric hospitalizations Past suicide attempts: Denies Family psych history: Reported family history of but unknown diagnosis Previous medications: Prozac, Lexapro, lithium, Zyprexa Alcohol and drug use: Reported medical marijuana and alcohol use occasionally Mental Status Exam: Appearance: grossly normal Mental Status: mental status grossly normal Mood: ok mood Affect: dysphoric affect Speech and Movement: speech normal, movement normal Attitude: cooperative Thought Process: normal Thought Content: Denied auditory hallucinations, no homicidality, no suicidality. Paranoid thoughts Insight: fair Judgment: fair Exam Physical Exam Vital Signs: Temp Pulse Resp BP Pulse Ox O2 Del Method 98.1 F 90 75 H 118/76 96 Room Air 01/21/24 19:59 01/21/24 15:30 01/21/24 19:59 01/21/24 19:59 01/21/24 19:59 01/21/24 19:59 Objective Labs Labs: Abnormal Labs 01/22/24 06:24 Cholesterol 114 L 25-OH Vitamin D Total 12.0 L Assessment/Plan Assessment/Plan (1) Schizophrenia: Plan Patient reports feeling better and denied paranoid thoughts and hallucinations Will continue Abilify 10 mg daily. May consider long-acting injection for compliance Patient reported stopped medication in the past because of how he felt Continue to monitor mental status Encourage group participation and medication compliance Risk benefits alternatives explained Documented By: John Gallegos MD [id number] Signed By: <Electronically signed by John Gallegos MD> 01/22/24 0815 [facility] Work Phone: History and physical note 01-21-2024 Note Date & Type Note Facility 01-21-2024 History and physi erendira note Note Date/Time January 21, 2024 9:42am [facility] [address] [place] [address] Psychiatry H&P Signed Patient: Reinier Higginbotham MR#: [id number] : 1975 Acct:[id number] Age/Sex: 48 / M Adm Date: 4 Loc: 1S Room: [address] [place] [address] Type: ADM IN Attending Dr: Aditya Duarte MD Copies to: NON STAFF Aditya Duarte MD~ Date of Service: 01/21/2024 HPI History of Present Illness History of present illness: Mr. Higginbotham is a 48 year old male who presented due to concern for psychosis and hallucinations. Upon assessment, patient reported that he has been trying to help people. He reported that he had issues with cameras at his house that he did not know about. He reported that they are recording him and are trying to expose him as lazy. He reported that he disrespected a friend and disrespected himself. Reported that he has been hearing voices and the things that he hears ranged from negative things to sharing and having a good time. He denied any visual hallucinations at this time. He stated that he does have paranoid thoughts and did accuse staff of poisoning his food today. He reported that he sees his demise over and over again. He reported that he prays that he will in frontof everyone. Past psych history: Psychosis Past hospitalizations: Admits to prior psychiatric hospitalizations Past suicide attempts: Denies Family psych history: Reported family history of but unknown diagnosis Previous medications: Prozac, Lexapro, lithium, Zyprexa Alcohol and drug use: Reported medical marijuana and alcohol use occasionally Living: Alone Employment: employed Review of symptoms: Constitutional: Denies chills and Denies fever(s) Eyes: Denies change in vision ENT: Denies abnormal hearing Cardiovascular: Denies chest pain Respiratory: Denies chest congestion and Denies cough Gastrointestinal: Denies change in bowel habits Genitourinary: Denies dysuria Musculoskeletal: Denies atrophy and Denies myalgias Integumentary/Breasts: Denies dry skin Neurologic: Denies abnormal gait and Denies abnormal movements Psychiatric: Reports depression and hallucinations. Also reported paranoid thoughts Physical exam: Const: cooperative Nutritional Appearance: average body habitus Orientation: alert, awake and oriented x3 HEENT: Head normal to inspection, hearing grossly normal bilaterally, external nose normal, face symmetric Eyes: appearance normal, both eyes and all related structures, sclerae normal Neck: normal visual inspection and full ROM Resp: normal respiratory effort, able to speak in complete sentences and symmetric chest movement Cardio: regular rate GI: normal to inspection and non-distended : deferred Skin: no rashes or lesions noted Neuro: CNI: Normal olfaction CNI: normal olfaction CNII: Visual hart intact, CNIII,IV,: EOM intact, no nystagmus. Pupils equal, round, reactive to light and accommodation, CNV: Sensation intact to light touch, CNVII: Raises eyebrows, smile/frown, puff out cheeks symmetrically, CNVIII: Hearing intact bilaterally, CNIX,X: Voice normal, soft palate elevation normal, symmetrical, CNXI: Shoulder shrug strong, equal bilaterally, CNXII: Tongue protrusion midline, movement symmetrical. Extrem: normal to inspection and full ROM Mental Status Exam: Appearance: grossly normal Mental Status: mental status grossly normal Mood: dysthymic mood Affect: dysphoric affect Speech and Movement: speech normal, movement normal Attitude: cooperative Thought Process: normal Thought Content: Reported auditory hallucinations, no homicidality, no suicidality. Paranoid thoughts Insight: fair Judgment: fair [facility] Medical History (Updated 01/21/24 @ 09:40 by Aditya Duarte MD) No pertinent past medical history Surgical History (Updated 01/21/24 @ 04:22 by Mg Hagan RN) No pertinent past surgical history Family History (Updated 07/14/23 @ 16:59 by Provider Conversion) Mother Cancer Legacy FamHx Problem: Diagnosed with Cancer Diabetes Social History Smoking Status: Current every day smoker Tobacco Type: cigarettes Substance Use Type: Marijuana Substance Abuse Comment: states uses thc only no street drugs/or pills Social History Comments: lives in [facility] in [facility] Meds Medications and Allergies Allergies No Known Allergies Allergy (Verified 02/19/18 00:46) Home Medications No known home meds 02/19/18 [History Confirmed 01/21/24] Exam Physical Exam Vital Signs: Temp Pulse Resp BP Pulse Ox O2 Del Method 98.2 F 89 16 118/78 100 Room Air 01/21/24 07:30 01/21/24 07:30 01/21/24 07:30 01/21/24 07:30 01/21/24 07:30 01/21/24 07:30 Assessment/Plan (1) Schizophrenia: Plan Patient presenting due to concern for paranoid thoughts and hallucinations Will start Abilify 10 mg daily. May consider long-acting injection for compliance Patient reported stopped medication in the past because of how he felt Continue to monitor mental status Encourage group participation and medication compliance Risk benefits alternatives explained Documented By: Aditya Duarte MD 01/21/24 0937 Signed By: <Electronically signed by Aditya Duarte MD> 01/21/24 0941 [facility] Work Phone: Evaluation note 07-14-2023 Note Date & Type Note Facility 07-14-2023 Evaluation note Encounter Date Diagnosis Assessment Notes Jun, Pre-employment examination (ICD-10 - Z02.1) [employer] Other Evaluation note 01-11-2023 Note Date & [...] Other MRSA home care material was printed [employer] Other History general Narrative - Reported 02-16-2018 Note Date & Type Note Facility 02-16-2018 History general N arrative - Reported Type Medical History Anxiety Medical History HX torn meniscus Surgical History RT knee surgery: torn meniscus x2 1998 Surgical History rotator cuff tear repair Hospitalization History [place] [address] [place]: obser vation February 2018 [employer] Other Evaluation note Note Date & Type Note Facility Evaluation note Diagnosis Onset Date Schizophrenia [facility] Work Phone: Summary Purpose Family History No Family History Records Found Relationship Condition Age at Onset Recorded Date/T levar Not Specified Unknown Malignant neoplasm Unknown Diabetes mellitus Unknown Advance Directives No Advanced Directives Records Found Advance Directive Response Recorded Date/ Time Advance Directives No February 18 11:16pm Chief Complaint and Reason for Visit Chief Complaint Schizophrenia: Volun tary Schizophrenia: Voluntary Reason for Visit Schizophrenia Additional Source Comments (unrecognized sect ion and content) No Status Records FoundNo Status Records FoundNo Status Records Found INFORMATION SOURCE (unrecogn ized section and content) DATE CREATED AUTHOR 04/11/2022 [facility] DATE CREATED AUTHOR AUTHOR'S ORGANIZ ATION 12/17/2023 [facility] DATE CREATED AUTHOR AUTHOR'S ORGANIZ ATION 02/09/2024 [facility] REASON FOR VISIT (unrecogniz ed section and content) ALLERGIC REACTION TO MEDSPHY SICAL Care Teams (unrecognized sec tion and content) Team Status: Active Member Role Status Dates NON STAFF Primary Care Provider Active Team Status: Inactive Member Role Status Dates NON STAFF Primary Care Provider Active Start: January 21, 2024 End: January 24, 2024 Aditya Duarte MD Admit Provider, Attending Provider Active Start: January 21, 2024 End: January 24, 2024 Team Status: Active Member Role Status Dates NON STAFF Primary Care Provider Active Start: January 21, 2024 Aditya Duarte MD Admit Provider, Atte nding Provider, Other Provider Active Start: January 21, 2024 FOR RECORDS PERTAINING TO PATIENTS WHO ARE [...] BE BASED ON THE PRIMARY CLINICAL RECORDS. [facility] [employer] [facility]. provides no warranty or guarantee of the accuracy or completeness of information in this document.
[2024-02-17 11:44] VITALS: TEMP 37.1
--- NOTE | 2024-02-17 11:49 | ED_ITS ---
HPI - Wound/Laceration General Chief Complaint: Wound/Laceration Stated Complaint: UPPER EXTREMITY INJURY Time Seen by Provider: 02/17/24 11:39 Source: patient Mode of arrival: walk-in Limitations: no limitations History of Present Illness HPI narrative: This patient here with a laceration to his dominant right arm. His last tetanus shot is up-to-date and current. He states he was at a neighbors helping him do some work and the whole cutting saw got away from him and danced up his right arm. He is very quick to respond and got his arm away from it but nonetheless has some wounds over the dorsum aspect of his forearm going down into the hand and thumb area. He has no loss of feeling or loss of strength or movement of his right arm. Related Data Allergies Allergy/AdvReac Type Severity Reaction Status Date / Time No Known Drug Allergies Allergy Verified 01/20/24 23:10 [facility] Social History Smoking status: Current every day smoker Exam Narrative Exam Narrative: Well-nourished while hydrated male no apparent distress. Very stoic. Tetanus shot is updated previously and he does not need that. Clinical examination over the dorsum of the hand he has multiple very fine sliver in slicing type lacerations consistent with the injury. These are not self-inflicted. There is no active bleeding. Neurovascular examination of all the digits is normal and there is no tendinopathy or tendon weakness. Several of these wounds are full- thickness and do not need closure most are partial-thickness and do not. So after lidocaine with epinephrine to 3 of the wounds they were reapproximated using a total of 12 sutures. 5-0 nylon was used. Total wound length will be 3 and half centimeters. Constitutional Vital Signs, click to edit/add: Last Vital Signs Temp 98.7 F 02/17/24 11:44 Pulse 62 02/17/24 11:20 Resp 18 02/17/24 11:20 BP 150/90 H 02/17/24 11:20 Pulse Ox 98 02/17/24 11:20 O2 Del Method Room Air 02/17/24 11:20 Course Vital Signs Vital signs: Vital Signs Pulse Rate 62 02/17/24 11:20 Respiratory Rate 18 02/17/24 11:20 Blood Pressure 150/90 H 02/17/24 11:20 Pulse Oximetry 98 02/17/24 11:20 Oxygen Delivery Method Room Air 02/17/24 11:20 Temperature 98.7 F 02/17/24 11:44 Pulse Rate 62 02/17/24 11:20 Respiratory Rate 18 02/17/24 11:20 Blood Pressure 150/90 H 02/17/24 11:20 Pulse Oximetry 98 02/17/24 11:20 Oxygen Delivery Method Room Air 02/17/24 11:20 Discharge Plan Discharge Stand Alone Forms: Portal Instructions Chief Complaint: Wound/Laceration Clinical Impression: Laceration of forearm, right Patient Disposition: Home, Self-Care Time of Disposition Decision: 12:29 Print Language: Bolivian Additional Instructions: Sutures out in 7 to 8 days. Keep clean and dry/apply thin layer of triple antibiotic therapy. Return for any evidence of infection Referrals: Physician,Non-Staff, [Primary Care Provider] - 1 week
[2024-02-17] MEDS: LIDOCAINE HCL 1%-EPINEPHRINE 1:100,000 20 ML MDV INJ (12:29)
[2024-02-17 12:42] VITALS: BP 135/88; PULSE 73; O2SAT 98
== END 2024-02-17 12:44 | disposition home or self-care (01) ==
PROVIDERS: Emergency Provider Emergency Medicine Emergency Medical Services
DX: S51.811A Laceration without foreign body of right forearm, initial encounter (principal); W27.0XXA Contact with workbench tool, initial encounter
CPT/HCPCS: 12002; 99284

== ENCOUNTER 2025-06-10 04:15 | Emergency (ER) | payer OTHER, SELFPAY ==
--- OUTSIDE RECORDS SUMMARY | 2025-04-11 04:15 | XMS_ITS ---
Author Organization [facility] [place] Address [address] [place] [address] Care Team Providers Care Locomotive Engineer Electric Name Role Phone None, Unknown or Primary Care Provider Unavailab SALAS Rothman Unavailable [phone] REASON FOR VISIT bm-CINDER SNAPPER cyst back and shoulder Encounters Encounter Location Date Provider Diagnosis [facility] [address] [place] [address] 04/11/2025 SALAS AYALA Epidermal cyst L72.0 and Follicular disorder, unspecified L73.9 Assessments Encounter Date Diagnosis (ICD Code) Assessment Notes Treatment Notes Treatment Clinical Notes Section Notes 04/11/2025 Epidermal cyst (ICD-10 - L72.0) 04/11/2025 Follicular disorder, unspecified (ICD-10 - L73.9) Plan Of Treatment Next Appt Details Provider Name:SALAS FLOWERS , 06/11/2025 08:30:00 AM, [address] [place], [address], Progress Notes * Reinier HIGGINBOTHAMDOB: 7 (49 yo M)Acc No.[id number]:04/11/2025 UNLOCKED PROGRESS NOTE Progress Note Patient: Reinier RODRÍGUEZ Provider: Yayo AYALA APRN :1975 A ge:49 Y S ex:Male Date:04/11/2025 Address:[address] [place] [address], [address], [id number] Pcp:Unknown or None Check In:08:05 AM ESTCheck O ut:08:19 AM EST Subjective: * Chief Complaints: * 1 . bm-CINDER SNAPPER cyst back and shoulder. * Medical History: Objective: * Vitals: Assessment: * Assessment: 1. E pidermal cyst - L72.0 2 . F ollicular disorder, unspecified - L73.9? Plan: * Treatment: * * Electronic signature of SAI AYALA NP on 06/10/2025 at 04:40 AM EDT Sign off status: Pending Visit Status: C HK (Check Out) * Provider: Yayo AYALA APRN Date: 04/11/2025 Generated for Marcus moreno/Felecia/Tamekaitting on: 06/10/2025 04:40 AM EDT
--- OUTSIDE RECORDS SUMMARY | 2025-05-14 04:30 | XMS_ITS ---
Author Organization The [facility] [place] Address [address] [place] [address] Care Team Providers Care Rn Maternity Name Role Phone None, Unknown or Primary Care Provider Unavailab SALAS Rothman Unavailable [phone] REASON FOR VISIT FD- cyst excision on back Encounters Encounter Location Date Provider Diagnosis [facility] [address] [place] [address] 05/14/2025 SALAS AYALA Plan Of Treatment Next Appt Details Provider Name:SALAS FLOWERS , 06/11/2025 08:30:00 AM, [address] [place], [address], Progress Notes * Reinier HIGGINBOTHAMDOB: 7 (49 yo M)Acc No.[id number]:05/14/2025 UNLOCKED PROGRESS NOTE Patient: Reinier RODRÍGUEZ Provider: Yayo AYALA APRN :1975 A ge:49 Y S ex:Male Date:05/14/2025 Address:[address], [address], [id number] Pcp:Unknown or None Subjective: * Chief Complaints: * 1 . FD- cyst excision on back. * Medical History: Objective: * Vitals: Assessment: Plan: * Treatment: * * Electronic signature of SAI AYALA NP on 06/10/2025 at 04:40 AM EDT Sign off status: Pending Visit Status: R /S (Rescheduled) * Provider: Yayo AYALA APRN Date: 0 05/14/2025 Generated for Marcus moreno/Felecia/Hipolito on: 0 06/10/2025 04:40 AM EDT
--- OUTSIDE RECORDS SUMMARY | 2025-05-28 05:30 | XMS_ITS ---
Author Organization The [facility] in [place] Address [address] [place] [address] Care Team Providers Care Sorter Operator Name Role Phone None, Unknown or Primary Care Provider Unavailab SALAS Rothman Unavailable [phone] REASON FOR VISIT KS/FD- cyst excision on back Encounters Encounter Location Date Provider Diagnosis [facility] [address] [place] [address] 05/28/2025 SALAS AYALA Neoplasm of uncertai n behavior of skin D48.5 ; Other pruritus L29.89 and Other specified erythematous conditions L53.8 Assessments Encounter Date Diagnosis (ICD Code) Assessment Notes Treatment Notes Treatment Clinical Notes Section Notes 05/28/2025 Neoplasm of uncertain behavior of skin (ICD-10 - D48.5) 05/28/2025 Other pruritus (ICD-10 - L29.89) 05/28/2025 Other specified erythematous conditions (ICD-10 - L53.8) Plan Of Treatment Next Appt Details Provider Name:SALAS FLOWERS , 06/11/2025 08:30:00 AM, [address] [place], [address], Progress Notes * Reinier HIGGINBOTHAMDOB: 7 (49 yo M)Acc No.[id number]:05/28/2025 UNLOCKED PROGRESS NOTE Patient: Reinier RODRÍGUEZ Provider: Yayo AYALA APRN :1975 A ge:49 Y S ex:Male Date:05/28/2025 Address:[address] [place] [address], [address], [id number] Pcp:Unknown or None Check In:09:17 AM ESTCheck O ut:10:15 AM EST Subjective: * Chief Complaints: * 1 . KS/FD- cyst excision on back. * Medical History: Objective: * Vitals: Assessment: * Assessment: 1. N eoplasm of uncertain behavior of skin - D48.5 2 . O ther pruritus - L29.89 3 . O ther specified erythematous conditions - L53.8 Plan: * Treatment: * Procedure Codes: [address],[place], [address] BENIGN LESION 1.12.0 CM * * Electronic signature of SAI AYALA NP on 06/10/2025 at 04:41 AM EDT Sign off status: Pending Visit Status: Zeb TIM (Check Out) * Provider: Yayo AYALA APRN Date: 05/28/2025 Generated for Marcus moreno/Felecia/Tamekaitting on: 06/10/2025 04:41 AM EDT
--- OUTSIDE RECORDS SUMMARY | 2025-06-04 05:30 | XMS_ITS ---
Author Organization [facility] Address [address] [place] [id number] Care Team Providers Care Cement Mason Apprentice Name Role Phone Johana Cook Primary Care Provider [phone] Taran Erazo Unavailable [phone] REASON FOR VISIT Rest # 15-O Social History Sex Assigned At : Social History Observation Description Sex Assigned At Male Encounters Encounter Location Date Provider Diagnosis [facility] [address] [place], [place] [id number] 06/04/2025 Taran Draper Plan Of Treatment Next Appt Details Provider Name:Taran Draper , 11/06/2025 08:45:00 AM, [address] [place] [address], [id number], Progress Notes * JOAQUINReinier LDOB: [birth year] (49 yo M)Acc No.[id number]:06/04/2025 Patient: Reinier RODRÍGUEZ Provider: Dolly Draper DDS :1975 A ge:49 Y S ex:Male Date:06/04/2025 Address:[address], [address], [place], [id number] Pcp:Johana Cook Subjective: * Chief Complaints: * 1 . Rest # 15-O. * Medical History: Objective: * Vitals: Assessment: Plan: * Treatment: * Billing Information: * Visit Code: * Procedure Codes: * Electronic signature of Tennille Draper DDS on 06/10/2025 at 04:41 AM EDT Sign off status: Pending * Provider: Dolly Draper DDS Date: 0 06/04/2025 Generated for Marcus moreno/Felecia/Hipolito on: 0 06/10/2025 04:41 AM EDT
[2025-06-10 04:22] VITALS: BP 150/86; PULSE 80; TEMP 37.1; O2SAT 97; BMI 31.5
--- NOTE | 2025-06-10 04:29 | ED_ITS ---
HPI - Male Genitourinary General Chief complaint: Urogenital-Male Stated complaint: UROLOGICAL ISSUE Time Seen by Provider: 06/10/25 04:26 Source: patient Mode of arrival: walk-in Limitations: no limitations History of Present Illness HPI Narrative: unprotected sex 3 days ago. States his partner did have some bleeding. He now complains of irritation at the meatus and a sore throat. no fever. No abdominal pain. He is concerned about STD and presents at 4:30am for evaluation. Related Data Home Medications ?Medication ?Instructions ?Recorded ?Confirmed No Known Home Medications 06/10/2505/20 Allergies Allergy/AdvReac Type Severity Reaction Status Date / Time No Known Drug Allergies Allergy Verified 06/10/25 04:24 Review of Systems ROS Status of ROS 10 or more systems reviewed and unremark able except as noted in history and below PFSH PFSH Social History Smoking status: Current every day smoker Little interest or pleasure in doing things: not at all Feeling down, depressed, or hopeless: not at all Exam Constitutional Vital Signs, click to edit/add: Last Vital Signs Temp 98.8 F 06/10/25 04:22 Pulse 80 06/10/25 04:22 Resp 18 06/10/25 04:22 BP 150/86 H 06/10/25 04:22 Pulse Ox 97 06/10/25 04:22 O2 Del Method Room Air 06/10/25 04:22 Common normals: no apparent distress, average body habitus, oriented x3, no limitations, healthy appearing, alert and well nourished [facility] Common normals: normocephalic and head/scalp atraumatic Other: erythema of pharynx Eye Common normals: PERRL, EOMs intact bilaterally and conjunctivae normal Respiratory Common normals: normal respiratory effort, no retractions, no use of accessory muscles and clear to auscultation bilaterally Cardio Common normals: regular rate, regular rhythm, S1 normal heart sound and S2 normal heart sound Other: mild erythema of urethra meatus Extremity Common normals: normal to inspection and full ROM Neuro Common normals: oriented x3, CN's II-XII intact bilaterally, moves all extremities and no focal motor deficits Psych Appearance: grossly normal Course Vital Signs Vital signs: Vital Signs Temperature 98.8 F 06/10/25 04:22 Pulse Rate 80 06/10/25 04:22 Respiratory Rate 18 06/10/25 04:22 Blood Pressure 150/86 H 06/10/25 04:22 Pulse Oximetry 97 06/10/25 04:22 Oxygen Delivery Method Room Air 06/10/25 04:22 Temperature 98.8 F 06/10/25 04:22 Pulse Rate 80 06/10/25 04:22 Respiratory Rate 18 06/10/25 04:22 Blood Pressure 150/86 H 06/10/25 04:22 Pulse Oximetry 97 06/10/25 04:22 Oxygen Delivery Method Room Air 06/10/25 04:22 MDM - Male Genitourinary MDM Narrative Medical decision making narrative: patient presents after unprotected sex with new partner. Has irritation of her urethral meatus and pharyngitis. No discharged. Urine sent for GC and chlaymdia and HIV and hepatitis protocol ordered. Results will return in 3-5 days. Patient treated with rocephin 500mg IM and given a prescription for doxycycline. advised to follow up with his doctor to review the results of his labs Discharge Plan Discharge Chief Complaint: Urogenital-Male Clinical Impression: Urethritis, Pharyngitis Patient Disposition: Home, Self-Care Prescriptions / Home Meds: No Action No Known Home Medications Print Language: Indonesian Instructions: Pharyngitis (ED), Urethritis (ED) Additional Instructions: follow up with your doctor next week to review the results of your labs. No sex until cleared by your doctor Referrals: Physician,Non-Staff, [Primary Care Provider] - 1 week
--- OUTSIDE RECORDS SUMMARY | 2025-06-10 04:40 | XMS_ITS | Patient Health Record ---
Author Organization [facility] in [place] Address [address] [place] [address] Care Team Providers Care Patient Observer Name Role Phone None, Unknown or Primary Care Provider Unavailab SALAS Rothman [facility] [phone] Reason For Referral No Information Encounters Encounter Location Date Provider Diagnosis [facility] [address] [place] [address] 04/11/2025 SALAS CHRISTINAHELM Epidermal cyst L72.0 and Follicular disorder, unspecified L73.9 [facility] [place] [address] 05/28/2025 SALAS AYALA Neoplasm of uncertai n behavior of skin D48.5 ; Other pruritus L29.89 and Other specified erythematous conditions L53.8 Assessments Encounter Date Diagnosis (ICD Code) Assessment Notes Treatment Notes Treatment Clinical Notes Section Notes 04/11/2025 Epidermal cyst (ICD-10 - L72.0) 05/28/2025 Neoplasm of uncertain behavior of skin (ICD-10 - D48.5) 04/11/2025 Follicular disorder, unspecified (ICD-10 - L73.9) 05/28/2025 Other pruritus (ICD-10 - L29.89) 05/28/2025 Other specified erythematous conditions (ICD-10 - L53.8) Plan Of Treatment Next Appt Details Provider Name:SALAS FLOWERS LM, 06/11/2025 08:30:00 AM, [address] [place] [place], [address], Insurance Providers Payer Name Payer Address Payer Phone Subscriber Number Group Number Insured Name Patient Relationship to Insured Coverage Start Date Coverage End Date [employer] [place] [employer] [id number] [place] [address] [id number] Reinier Higginbotham Self - patient is the insured 5
--- OUTSIDE RECORDS SUMMARY | 2025-06-10 04:41 | XMS_ITS | CCD ---
Author Organization [employer] [facility] Care Team Providers Care Guide Plant Name Role Phone REQUEST, DR NONE LISTED Primary Care Unavaila BRAD Vicente Admitting Unavailable BRAD SORIANO Attending Unavailable ARNOLDO LITTLEJOHN Consulting Unavailable MARANDA APONTE Consulting Unavailable Rosa Lopez Unavailable NO PCP, NO PCP Primary Care Unavailable JEVON GONZALEZ Attending Unavailable NON STAFF Primary Care Provider Unavailabl e MD Aditya Duarte Admit Provider MD Aditya Duarte Attending Provider [phone] John Gallegos Admitting Unavailab le John Gallegos Attending Unavailab le NON STAFF Primary Care Unavailable John Gallegos Attending Unavailab le NON STAFF Primary Care Unavailable Aditya Duarte Admitting Unavailable Medications Current Medications Medication Drug Class(es) Dates Sig (Normalized) Sig (Original) ARIPiprazole 10 mg oral tablet (1 source) Atypical Antipsychotic Start: 01-24-2024 take 10 mg by mouth at bedtime Aripiprazole Active 10 MG PO Bedtime 15 January 24, 2024 12:00am clindamycin 300 [...] as needed Orally every 12 hrs Active [place] (No Known Home Meds) (1 source) Start: 02-19-2018 [place] (No Known Home Meds) Active February 19, [...] take 1 capsule by mouth twice daily [place] [facility] Carbonate 150 MG TAKE 1 CAPSULE BY MOUTH TWICE A DAY Oral for 30 Days Not-Taking OLANZapine 10 mg oral tablet (3 sources) Atypical Antipsychotic Start: 02-21-2018 End: 01-21-2024 take 10 mg by mouth once daily at bedtime Olanzapine Discontinued 10 MG PO Daily at bedtime February 21, 2018 12:00am January 21, 2024 5:19am take 1 tablet by laura th every twelve hours ZyPREXA 15 MG 1 tablet Orally BID Not-Taking OLANZapine 7.5 M G Oral for 30 Days Active Problems Problem Classification Problem Date Documented Date Episodic/Chronic Administrative/social admission (1 source) Encounter for pre-employment examination Episodic Disorders of teeth and jaw (3 sources) Other specified disorders of teeth and supporting structures; Translations: [Toothache] Onset: 12-17-2023 Episodic Other aftercare (1 source) [facility] [place] therapy; Translations: [OTH [employer]PENTER [employer] F[employer]ING CURRENT DRUG THERAPY] Onset: 04-11-2022 Episodic Other [...] on 01-22-2024 ALT [Catalytic activity/Vol] 17 U/L Normal 7-52 [facility] Comment on above: Performed By: #### T SH3 wRFLX, [id number], LIPID, HEPATIC #### [facility] [address] [place] [address] [place] Albumin [Mass/volume] in Ser um or Plasma by Bromocresol green (BCG) dye binding methoOrdered By: Aditya Duarte on 01-22-2024 Albumin BCG dye [Mass/Vol] 4.1 g/dL 3.5-5.7 [facility] Alkaline phosphatase [Enzyma tic activity/volume] in Serum or PlasmaOrdered By: Aditya Duarte on 01-22-2024 ALP [Catalytic activity/Vol] 92 U/L Normal 34-104 [facility] Comment on above: Performed By: #### T SH3 wRFLX, [id number], LIPID, HEPATIC #### [facility] [address] [place] [address] [place] Aspartate aminotransferase [ Enzymatic activity/volume] in Serum or PlasmaOrdered By: Aditya Duarte on 01-22-2024 AST [Catalytic activity/Vol] 18 U/L Normal 13-39 [facility] Comment on above: Performed By: #### T SH3 wRFLX, [id number], LIPID, HEPATIC #### [facility] [address] [place] [address] [place] Bilirubin.direct [Mass/volum e] in Serum or PlasmaOrdered By: Aditya Duarte on 01-22-2024 Bilirubin.direct [Mass/Vol] 0.10 mg/dL 0.03-0.18 [facility] Bilirubin.total [Mass/volume ] in Serum or PlasmaOrdered By: Aditya Duarte on 01-22-2024 Bilirubin [Mass/Vol] 0.4 mg/dL Normal 0.3-1.0 [facility] Comment on above: Performed By: #### T SH3 wRFLX, [id number], LIPID, HEPATIC #### [facility] [address] [place] [address] [place] Cholesterol [Mass/volume] in Serum or PlasmaOrdered By: Aditya Duarte on 01-22-2024 Cholesterol [Mass/Vol] 114 mg/dL Low 140-200 [facility] Comment on above: Chol less than 200 m g/dl low riskChol 201-239 mg/dl borderline riskChol 240 mg/dl and greater high risk Result Comment: Chol less than 200 mg/dl low risk Chol 201-239 mg/dl borderline risk Chol 240 mg/dl and greater high risk Performed By: #### T SH3 wRFLX, [id number], LIPID, HEPATIC #### [facility] [address] [place] [id number] [place] Cholesterol in LDL Calc [Mas s/Vol]Ordered By: Aditya Duarte on 01-22-2024 Cholesterol in LDL [Mass/Vol] 54 mg/dL 0-100 [facility] Comment on above: LDL ATP III CLASSIFI CATIONLDL less than 100 mg/dL OptimalLDL 100-129 mg/dL Near or above optimalLDL 130-159 mg/dL Borderline highLDL 160-189 mg/dL HighLDL greater than 189 mg/dL Very high Cholesterol in VLDL Calc [Ma ss/Vol]Ordered By: Aditya Duarte on 01-22-2024 Cholesterol in VLDL [Mass/Vol] 25 mg/dL [facility] Hepatic Panelon 01-22-2024 Albumin [Mass/Vol] 4.1 g/dL Normal 3.5-5.7 The Counts Include [address] [facility] At [facility] Comment on above: Performed By: #### T SH3 wRFLX, [id number], LIPID, HEPATIC #### [facility] [address] Bilirubin,Indirect 0.3 mg/dL Normal The Counts Include [address] [facility] At [facility] Comment on above: Performed By: #### T SH3 wRFLX, [id number], LIPID, HEPATIC #### [facility] [address] Bilirubin.indirect [Mass/Vol] 0.10 mg/dL Normal 0.03-0.18 The Counts Include [address] [facility] At [facility] Comment on above: Performed By: #### T SH3 wRFLX, [id number], LIPID, HEPATIC #### [facility] [address] Lipid Panelon 01-22-2024 LDL Cholesterol,Calculated 54 mg/dL Normal 0-100 The Counts Include [address] [facility] At [facility] Comment on above: Result Comment: LDL ATP III CLASSIFICATION LDL less than 100 mg/dL Optimal LDL 100-129 mg/dL Near or above optimal LDL 130-159 mg/dL Borderline high LDL 160-189 mg/dL High LDL greater than 189 mg/dL Very high Performed By: #### T SH3 wRFLX, [id number], LIPID, HEPATIC #### [facility] [address] Triglyceride w/Reflex 129 mg/dL Normal 0-149 The Counts Include [address] [facility] At [facility] Comment on above: Result Comment: TRIG ATP III CLASSIFICATION TRIG less than 150 mg/dL Normal TRIG 150-199 mg/dL Borderline high TRIG 200-500 mg/dL High TRIG greater than 500 mg/dL Very high Standard traceable to the Center for Disease Conrtrol and Prevention (CDC) test method. Performed By: #### T SH3 wRFLX, [id number], LIPID, HEPATIC #### [facility] [address] VLDL CHOLESTEROL 25 mg/dL Normal The Counts Include [address] [facility] At [facility] Comment on above: Performed By: #### T SH3 wRFLX, [id number], LIPID, HEPATIC #### [facility] [address] Protein [Mass/volume] in Ser um or PlasmaOrdered By: Aditya Gerald on 01-22-2024 Protein [Mass/Vol] 6.6 g/dL Normal 6.4-8.9 [facility] Comment on above: Performed By: #### T SH3 wRFLX, [id number], LIPID, HEPATIC #### [facility] [address] Serum globulin measurement b y calculation (mass/volume)Ordered By: Aditya Duarte on 01-22-2024 Globulin (S) [Mass/Vol] 2.5 g/dL Normal [facility] Comment on above: Performed By: #### T SH3 wRFLX, [id number], LIPID, HEPATIC #### [facility] [address] Serum or plasma albumin/glob ulin mass ratioOrdered By: Aditya Duarte on 01-22-2024 Albumin/Globulin [Mass ratio] 1.6 {ratio} [facility] Comment on above: Performed By: #### T SH3 wRFLX, [id number], LIPID, HEPATIC #### [facility] [address] Serum or plasma high density lipoprotein (HDL) cholesterol measurementOrdered By: Aditya Duarte on 01-22-2024 Cholesterol in HDL [Mass/Vol] 34 mg/dL Normal 23-92 [facility] Comment on above: HDL CHOL ATP-III CLA SSIFICATION Cardiovascular RiskHDL > or equal to 60 mg/dL LOWHDL < 40 mg/dL HIGH Result Comment: HDL CHOL ATP-III CLASSIFICATION Cardiovascular Risk HDL > or equal to 60 mg/dL LOW HDL < 40 mg/dL HIGH Performed By: #### T SH3 wRFLX, [id number], LIPID, HEPATIC #### [facility] [address] Serum or plasma non-glucuron idated bilirubin measurement (mass/volume)Ordered By: Aditya Duarte on 01-22-2024 Bilirubin.indirect [Mass/Vol] 0.3 mg/dL [facility] Serum or plasma total choles terol/high density lipoprotein (HDL) cholesterol mass ratOrdered By: Aditya Duarte on 01-22-2024 Cholesterol.total/Chol esterol in HDL [Mass ratio] 3.4 {ratio} Normal <5.0 [facility] Comment on above: Performed By: #### T SH3 wRFLX, [id number], LIPID, HEPATIC #### [facility] [address] [place] [address] Thyroid Stim Hormone w/Rflxo n 01-22-2024 Thyroid Stim Hormone w/Rflx 1.01 u[iU]/mL Normal 0.45-5.33 The Counts Include [address] [facility] At [facility] Comment on above: Performed By: #### T SH3 wRFLX, [id number], LIPID, HEPATIC #### [facility] [address] [place] [address] Thyrotropin [Units/volume] i n Serum or PlasmaOrdered By: Aditya Duarte on 01-22-2024 TSH Qn 1.01 m[IU]/L 0.45-5.33 [facility] Triglyceride [Mass/volume] i n Serum or PlasmaOrdered By: Aditya Duarte on 01-22-2024 Triglyceride [Mass/Vol] 129 mg/dL 0-149 [facility] Comment on above: TRIG ATP III CLASSIF ICATIONTRIG less than 150 mg/dL NormalTRIG 150-199 mg/dL Borderline highTRIG 200-500 mg/dL High TRIG greater than 500 mg/dL Very highStandard traceable to the Center for Disease Conrtrol and Prevention (CDC) test method. Vitamin D 25 Hydroxy Totalon 01-22-2024 Vitamin D 25 Hydroxy Total 12.0 ng/mL Low 30-100 The Counts Include [address] [facility] At [facility] Comment on above: Result Comment: TOM MIN D STATUS 25(OH)VITAMIN D RANGE (ng/mL) Deficient <20 Insufficient 20 to <30 Sufficient 30 to 100 Reference: Jag MF,Qian NC, Julius MATOS, et al. Evaluation,treatment, and prevention of vitamin D deficiency; an Endocrine Society clinical practice guideline. JCEM. 2010; 96(7):1911-30. PERFORMED BY: [place] [address] PATHOLOGIST EXTRACTOR PLANT OPERATOR JIANLAN SUN M.D. Performed By: #### T SH3 wRFLX, [id number], LIPID, HEPATIC #### [facility] [address] Vitamin D+Metabolites [Mass/ volume] in Serum or PlasmaOrdered By: Aditya Duarte on 01-22-2024 Vitamin D+Metabolites [Mass/Vol] 12.0 ng/mL 30-100 [facility] Comment on above: VITAMIN D STATUS 25( [place])VITAMIN D RANGE (ng/mL) Deficient <20 Insufficient 20 to <30Sufficient 30 to 100Reference: Jag MF,Qian NC, Julius MATOS, et al. Evaluation,treatment, and prevention of vitamin D deficiency; an Endocrine Society clinical practice guideline. JCEM. 2010; 96(7):1911-30. BNPon 04-08-2022 Natriuretic peptide B (Bld) [Mass/Vol] 50.0 pg/mL Normal <=450.0 [facility] Comment on above: Performed By: #### B VOCATIONAL REHABILITATION TEACHER, CMP #### [facility] [address] [place] [address] Dr. Wili Dai CBC AUTO DIFFon 04-08-2022 BASO # 0.0 103/ul Normal 0.0-0.1 [facility] Comment on above: Performed By: #### C BC #### [facility] [address] [place] [address] [address] Wili Dai Basophils/100 WBC (Bld) 0.4 % Normal 0.2-2.0 [facility] Comment on above: Performed By: #### C BC #### [facility] [address] [place] [address] Dr. Wili Dai EO # 0.1 103/ul Normal 0.0-0.7 [facility] Comment on above: Performed By: #### C BC #### [facility] [address] [place] [address] [address] Wili Dai Eosinophils/100 WBC (Bld) 1.4 % Normal 0.9-7.0 [facility] Comment on above: Performed By: #### C BC #### [facility] [address] [place] [address] Dr. Wili Dai Erythrocyte distribution width (RBC) [Ratio] 13.2 % Normal 11.0-15.0 [facility] Comment on above: Performed By: #### C BC #### [facility] [address] [place] [address] Dr. Wili Dai Hematocrit (Bld) [Volume fraction] 41.9 % Critically low 42.0-54.0 [facility] Comment on above: Performed By: #### C BC #### [facility] [address] [place] [address] Dr. Wili Dai Hemoglobin (Bld) [Mass/Vol] 13.8 g/dL Critically low 14.0-18.0 [facility] Comment on above: Performed By: #### C BC #### [facility] [address] [place] [address] Dr. Wili Dai IG # 0.04 10e3/ul Critically high 0.00-0.03 [facility] Comment on above: Performed By: #### C BC #### [facility] [address] [place] [address] Dr. Wili Dai IG % 0.5 % Normal 0.0-0.5 [facility] Comment on above: Performed By: #### C BC #### [facility] [address] [place] [address] Dr. Wili Dai LYMPH # 2.9 103/ul Normal 1.2-3.8 [facility] Comment on above: Performed By: #### C BC #### [facility] [address] [place] [address] Dr. Wili Dai Lymphocytes/100 WBC (Bld) 39.5 % Normal 20.5-60.0 [facility] Comment on above: Performed By: #### C BC #### [facility] [address] [place] [address] Dr. Wili Dai MANUAL DIFF REQ NO Normal [facility] Comment on above: Performed By: #### C BC #### [facility] [address] [place] [address] Dr. Wili Dai MCH (RBC) [Entitic mass] 30.2 pg Normal 25.9-34.0 [facility] Comment on above: Performed By: #### C BC #### [facility] [address] [place] [address] Dr. Wili Dai MCHC (RBC) [Mass/Vol] 32.9 g/dL Normal 29.9-35.2 [facility] Comment on above: Performed By: #### C BC #### [facility] [address] [place] [address] Dr. Wili Dai MCV (RBC) [Entitic vol] 91.7 fL Normal 80.0-94.0 [facility] Comment on above: Performed By: #### C BC #### [facility] [address] [place] [address] Dr. Wili Dai MONO # 0.4 103/ul Normal 0.3-0.8 [facility] Comment on above: Performed By: #### C BC #### [facility] [address] [place] [address] Dr. iWli Dai Monocytes/100 WBC (Bld) 5.0 % Normal 1.7-12.0 [facility] Comment on above: Performed By: #### C BC #### [facility] [address] [place] [address] Dr. Wili Dai NEUT # 3.9 103/ul Normal 1.4-6.5 [facility] Comment on above: Performed By: #### C BC #### [facility] [address] [place] [address] Dr. Wili Dai Neutrophils/100 WBC (Bld) 53.2 % Normal 43.0-75.0 [facility] Comment on above: Performed By: #### C BC #### [facility] [address] [place] [address] Dr. Wili Dai Platelet mean volume (Bld) [Entitic vol] 8.8 fL Critically low 9.5-13.5 [facility] Comment on above: Performed By: #### C BC #### [facility] [address] [place] [address] Dr. Wili Dai PLT 247 103/ul Normal 150-450 [facility] Comment on above: Performed By: #### C BC #### [facility] [address] [place] [address] Dr. Wili Dai RBC 4.57 106/ul Critically low 4.70-6.10 [facility] Comment on above: Performed By: #### C BC #### [facility] [address] [place] [address] Dr. Wili Dai WBC 7.4 103/ul Normal 4.0-11.0 [facility] Comment on above: Performed By: #### C BC #### [facility] [address] [place] [address] Dr. Wili Dai PROF 14(COMP METB)on 022 Albumin [Mass/Vol] 3.4 g/dL Normal 3.4-5.0 [facility] Comment on above: Performed By: #### B VOCATIONAL REHABILITATION TEACHER, CMP #### [facility] [address] [place] [address] Dr. Wili Dai Albumin/Globulin [Mass ratio] 1.1 {ratio} Normal [facility] Comment on above: Performed By: #### B VOCATIONAL REHABILITATION TEACHER, CMP #### [facility] [address] [place] [address] Dr. Wili Dai ALP [Catalytic activity/Vol] 82 U/L Normal 46-116 [facility] Comment on above: Performed By: #### B VOCATIONAL REHABILITATION TEACHER, CMP #### [facility] [address] [place] [address] Dr. Wili Dai ALT [Catalytic activity/Vol] 58 U/L Normal 16-63 [facility] Comment on above: Performed By: #### B VOCATIONAL REHABILITATION TEACHER, CMP #### [facility] [address] [place] [address] Dr. Wili Dai Anion gap [Moles/Vol] 9.1 mmol/L Normal [facility] Comment on above: Performed By: #### B VOCATIONAL REHABILITATION TEACHER, CMP #### [facility] [address] [place] [address] Dr. Wili Dai AST [Catalytic activity/Vol] 35 U/L Normal 15-37 [facility] Comment on above: Performed By: #### B VOCATIONAL REHABILITATION TEACHER, CMP #### [facility] [address] [place] [address] Dr. Wili Dai Bilirubin [Mass/Vol] 0.2 mg/dL Normal 0.2-1.0 [facility] Comment on above: Performed By: #### B VOCATIONAL REHABILITATION TEACHER, CMP #### [facility] [address] [place] [address] Dr. Wili Dai Calcium [Mass/Vol] 8.4 mg/dL Critically low 8.5-10.1 [facility] Comment on above: Performed By: #### B VOCATIONAL REHABILITATION TEACHER, CMP #### [facility] [address] [place] [address] Dr. Wili Dai Chloride [Moles/Vol] 106 mmol/L Normal 98-107 [facility] Comment on above: Performed By: #### B VOCATIONAL REHABILITATION TEACHER, CMP #### [facility] [address] [place] [address] Dr. Wili Dai CO2 [Moles/Vol] 29.8 mmol/L Normal 21.0-32.0 [facility] Comment on above: Performed By: #### B VOCATIONAL REHABILITATION TEACHER, CMP #### [facility] [address] [place] [address] Dr. Wili Dai Creatinine [Mass/Vol] 1.08 mg/dL Normal 0.70-1.30 [facility] Comment on above: Performed By: #### B VOCATIONAL REHABILITATION TEACHER, CMP #### [facility] [address] [place] [address] Dr. Wili Dai EGFR-AF CAMEROONIAN >60 Normal >=60 [facility] Comment on above: Performed By: #### B VOCATIONAL REHABILITATION TEACHER, CMP #### [facility] [address] [place] [address] Dr. Wili Dai EGFR-NON AF CAMEROONIAN >60 Normal >=60 [facility] Comment on above: Performed By: #### B VOCATIONAL REHABILITATION TEACHER, CMP #### [facility] [address] [place] [address] Dr. Wili Dai Globulin (S) [Mass/Vol] 3.0 g/dL Normal [facility] Comment on above: Performed By: #### B VOCATIONAL REHABILITATION TEACHER, CMP #### [facility] [address] [place] [address] Dr. Wili Dai Glucose [Mass/Vol] 83 mg/dL Normal 74-106 [facility] Comment on above: Performed By: #### B VOCATIONAL REHABILITATION TEACHER, CMP #### [facility] [address] [place] [address] Dr. Wili Dai Potassium [Moles/Vol] 3.9 mmol/L Normal 3.5-5.1 [facility] Comment on above: Performed By: #### B VOCATIONAL REHABILITATION TEACHER, CMP #### [facility] [address] [place] [address] Dr. Wili Dai Protein [Mass/Vol] 6.4 g/dL Normal 6.4-8.2 [facility] Comment on above: Performed By: #### B VOCATIONAL REHABILITATION TEACHER, CMP #### [facility] [address] [place] [address] Dr. Wili Dai Sodium [Moles/Vol] 141 mmol/L Normal 136-145 [facility] Comment on above: Performed By: #### B VOCATIONAL REHABILITATION TEACHER, CMP #### [facility] [address] [place] [address] Dr. Wili Dai Urea nitrogen [Mass/Vol] 11.0 mg/dL Normal 7.0-18.0 [facility] Comment on above: Performed By: #### B VOCATIONAL REHABILITATION TEACHER, CMP #### [facility] [address] [place] [address] Dr. Wili Dai Urea nitrogen/Creatinine [Mass ratio] 10.2 mg/mg Normal [facility] Comment on above: Performed By: #### B VOCATIONAL REHABILITATION TEACHER, CMP #### [facility] [address] [place] [address] Dr. Wili Dai US FELIPE DOP LEG [...] by: MARANDA APONTE Date: 2022-04-08 20:29 Normal [facility] Vital Signs Date Time Vital Sign Value Performing Clinician Facility 01-24-2024 07:30-0400 Body temperature 97.3 [degF] [facility] 01-24-2024 07:30-0400 Diastolic blood pressure 88 mm[Hg] [facility] 01-24-2024 07:30-0400 Heart rate 78 /min [facility] 01-24-2024 07:30-0400 Respiratory rate 16 /min [facility] 01-24-2024 07:30-0400 SaO2% (BldA) [Mass fraction] 98 % [facility] 01-24-2024 07:30-0400 Systolic blood pressure 133 mm[Hg] [facility] 01-22-2024 15:15-0400 Body height 187.96 cm [facility] 01-22-2024 09:00-0400 Body weight 102.52 kg [facility] 07-14-2023 16:50-0400 Body height 187.96 cm Rosa Lopez Other [facility] [employer] Other 07-14-2023 16:50-0400 Body mass index (BMI) [Ratio] 30.63 kg/m2 Rosa Lopez Other [facility] Other 07-14-2023 16:50-0400 Body temperature 99.4 [degF] Rosa Lopez Other [employer] Other 07-14-2023 16:50-0400 Body weight 108.23 kg Rosa Jessica Other [employer] Other 07-14-2023 16:50-0400 Diastolic blood pressure 84 mm[Hg] Rosa Jessica Other [facility] Other 07-14-2023 16:50-0400 Respiratory rate 18 /min Rosa Jessica Other [employer] Other 07-14-2023 16:50-0400 SaO2% (BldA) [Mass fraction] 96 % Rosa Jessica Other [employer] Other 07-14-2023 16:50-0400 Systolic blood pressure 123 mm[Hg] Rosa Jessica Other [employer] Other 01-11-2023 12:30-0400 Body height 187.96 cm Rosa Jessica Other [employer] Other 01-11-2023 12:30-0400 Body mass index (BMI) [Ratio] 30.17 kg/m2 Rosa Jessica Other [employer] Other 01-11-2023 12:30-0400 Body temperature 98.8 [degF] Rosa Jessica Other [employer] Other 01-11-2023 12:30-0400 Body weight 106.6 kg Rosa Jessica Other [employer] Other 01-11-2023 12:30-0400 Respiratory rate 18 /min Rosa Jessica Other [facility] Other 01-11-2023 12:30-0400 SaO2% (BldA) [Mass fraction] 97 % Rosa Jessica Other [employer] Other Encounters Encounter Date Encounter Type Care Provider Facility Start: 05-15-2024 ambulatory John Gordon acility:[facility] Start: 01-21-2024 Non-patient / Non-visit Counts Include 234 Beds At The [facility] Work Phone: Start: 01-21-2024 End: 01-24-2024 Evaluation and management of inpatient [facility] Work Phone: Start: 12-17-2023 End: 12-17-2023 Emergency department patient visit NO PCP NO PCP [facility] Start: 07-14-2023 End: 07-14-2023 ambulatory Rosa Lopez Other [employer] Other Start: 07-14-2023 Office outpatient visit 15 minutes Rosa Jessica [facility] Start: 01-11-2023 End: 01-11-2023 ambulatory Rosaann Lopez Other [facility] Other Start: 01-11-2023 Office outpatient ne w 20 minutes Rosa Jessica [facility] Start: 04-08-2022 End: 04-08-[address] NONE LISTED REQUEST Facility: Plan of Treatment Date Care Activity Detail Author Start: 01-24-2024 [facility] Start: 01-21-2024 Hospital admission [facility] Patient Education Schizophrenia (DC) Know your Meds [facility] Work Phone: Patient referral [facility] Work Phone: Payers Date Payer Category Payer Self-pay [id number] 2020 Unknown [id number] 1975 Unknown [id number] 1975 Unknown [id number] 1959 Unknown [id number] Private Health Insurance [id number] Unknown Financial Counselor [id number] Unknown [id number] Unknown [id number] Social History Date Type Detail Facility Unknown if ever smoked [facility] [employer] Other Sex Assigned At Sex Assigned At Bir th Want[facility] [employer] Other Start: 01-21-2024 Tobacco smoking status NHIS Smoker (finding) [facility] Start: 1975 Sex Assigned At Male F [facility] Goals Date Patient Goal Desired Activity /State Functional Status Date Assessment Result Facility 01-24-2024 Functional status [facility] at [facility] Work Phone: Mental Status Date Assessment Result Facility 01-24-2024 Cognitive function Cognitive Sta tus Patient at [facility] Work Phone: Discharge summary 01-24-2024 Note Date & Type Note Facility 01-24-2024 Discharge summary Note Date/Time January 24, 2024 8:00am [facility] [address] [place] [address] Discharge Summary Signed Patient: Reinier Higginbotham MR#: [id number] : 1975 Acct:[id number] Age/Sex: 48 / M Adm Date: 4 Loc: 1S Room: [address] [place] [address]: Aditya Duarte MD Copies to: [...] He follows up with Dr. Soliz in [place], [place] He reported feeling more focused and [...] supervision of a psychiatrist. 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 The patient was counseled that if there was an increase in mental health issues, depression, anxiety, medication side effects, self harm or thoughts of harm to others, the patient was not to harm them self or stop treatment, but to call [employer], 911 or come to the nearest emergency [...] signed by John Gallegos MD> 01/24/24 0800 [facility] Work Phone: Progress note 01-23-2024 Note Date & Type Note Facility 01-23-2024 Progress note Note Date/Time January 23, 2024 7:43am [facility] [address] [place] [address] Psychiatry Progress Note Signed Patient: Reinier Higginbotham MR#: [id number] : 1975 Acct:[id number] Age/Sex: 48 / M Adm Date: 4 Loc: Room: [address] [place] [address] Type : ADM IN Attending Dr: Aditya [...] other co-workers and he talked to his 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 Mental Status: mental status grossly [...] signed by John Gallegos MD> 01/23/24 0743 [facility] Work Phone: Progress note 01-22-2024 Note Date & Type Note Facility 01-22-2024 Progress note Note Date/Time January 22, 2024 8:11am [facility] [address] [place] [address] Psychiatry Progress Note Signed Patient: Reinier Higginbotham MR#: [id number] : 1975 Acct:[id number] Age/Sex: 48 / M Adm Date: 4 Loc: 1S Room: [address] [place] [address] Type : ADM IN Attending Dr: Aditya Duarte MD Copies to: ~ Date of Service: 01/22/2024 Subjective Subjective Narrative: Mr. Higginbotham said he is feeling better and noted that Abilify is helping. He previously tried multiple meds and used to follow up with [facility]. He said psych meds made him [...] signed by John Gallegos MD> 01/22/24 0815 [facility] Work Phone: History and physical note 01-21-2024 Note Date & Type Note Facility 01-21-2024 History and physi erendira note Note Date/Time January 21, 2024 9:42am [facility] [address] [place] [address] Psychiatry H&P Signed Patient: Reinier Higginbotham MR#: [id number] : 1975 Acct:[id number] Age/Sex: 48 / M Adm Date: 4 Loc: 1S Room: 3E4361-6 Type: ADM IN Attending Dr: Aditya Duarte [...] suicidality. Paranoid thoughts Insight: fair Judgment: fair [facility] Medical History (Updated 01/21/24 @ 09:40 by [...] drugs/or pills Social History Comments: lives in [facility] Meds Medications and Allergies Allergies No Known [...] alternatives explained Documented By: Aditya Duarte MD 01/21/2437 Signed By: <Electronically signed by Aditya Duarte MD> 01/21/24 0941 [facility] Work Phone: Evaluation note 07-14-2023 Note Date & Type Note Facility 07-14-2023 Evaluation note Encounter Date Diagnosis Assessment Notes Jun, Pre-employment examination (ICD-10 - Z02.1) [employer] Other Evaluation note 01-11-2023 Note Date & [...] Other MRSA home care material was printed [employer] Other History general Narrative - Reported 02-16-2018 Note Date & Type Note Facility 02-16-2018 History general N arrative - Reported Type Medical History Anxiety Medical History HX torn meniscus Surgical History RT knee surgery: torn meniscus x2 1997 Surgical History rotator cuff tear repair Hospitalization History [place] [address] [place]: [facility] February 2018 [employer] Other Evaluation note Note Date & Type Note Facility Evaluation note Diagnosis Onset Date Schizophrenia acute [facility] Work Phone: Summary Purpose Family History No [...] and content) DATE CREATED AUTHOR 04/11/2022 [facility] DATE CREATED AUTHOR AUTHOR'S ORGANIZ ATION 12/17/2023 [facility] DATE CREATED AUTHOR AUTHOR'S ORGANIZ ATION 10/19/2024 [facility] REASON FOR VISIT (unrecogniz ed [...] Care Provider Active Start: January 21, 2024 dAitya Duarte MD Admit Provider, Atte nding Provider, [...] BE BASED ON THE PRIMARY CLINICAL RECORDS. [facility]. provides no warranty or guarantee of the accuracy or completeness of information in this document.
--- OUTSIDE RECORDS SUMMARY | 2025-06-10 04:41 | XMS_ITS | Clinical Summary ---
Author Organization [facility] Healthcare Address [address] [place] [address] Care Team Providers Care Registered Private Duty Nurse Name Role Phone Unavailable Primary Care Provider Unavailabl e Social History Tobacco Use Types Packs/Day Years Used Date Smoking Tobacco: Never Assessed Sex and Gender Information Value Date Recorded Sex Assigned at Not on file Legal Sex Male 8:06 PM EDT Gender Identity Not on file Sexual Orientation Not on file Last Filed Vital Signs Vital Sign Reading Time Taken Comments Blood Pressure 144/92 09/03/2018 12:00 PM EST Pulse - - Temperature - - Respiratory Rate - - Oxygen Saturation - - Inhaled Oxygen Concentration - - Weight 101 kg (223 lb) 08/03/2021 12:00 PM EST Height 188 cm (6' 2 ) 08/03/2021 12:00 PM EST Body Mass Index 28.63 08/03/2021 12:00 PM EST Plan of Treatment Not on file Insurance [facility] [address] [place] [id number]
--- OUTSIDE RECORDS SUMMARY | 2025-06-10 04:41 | XMS_ITS | Encounter Summary ---
Author Organization [employer] Address [id number] [address] [place] [address] Care Team Providers Care Programming Instructor Name Role Phone No Pcp, No Pcp Primary Care Provider Unavailabl e Encounter Details Date Type Department Care Team (Late st Contact Info) Description 07/15/2021 Telephone [facility] [address] [place] [address] [place] [phone] Lotsu Zelaya CMA Social History Tobacco Use Types Packs/Day Years Used Date Smoking Tobacco: Every Day Cigarettes Smokeless Tobacco: Never Alcohol Use Standard Drinks/Week Comments Yes 0 (1 standard drink = 0.6 oz pur e alcohol) occiasional AUDIT-C Answer Date Recorded Frequency of Alcohol Consumption Never 10/26/2018 Average Number of Drinks Not on file 019 Frequency of Binge Drinking Not on file 04/2019 PHQ-2 Answer Date Recorded Total Score 25 06/28/2021 Childcare Answer Date Recorded Childcare Unknown 02/27/2019 Employment Answer Date Recorded Employment Unknown 02/27/2019 Purpose - Life Answer Date Recorded Purpose and direction in life Unknown Sex and Gender Information Value Date Recorded Sex Assigned at Not on file Legal Sex Male 11:28 AM EDT Gender Identity Not on file Sexual Orientation Not on file COVID-19 Exposure Response Date Recorded In the last month, have you been in contact with someone who was confirmed or suspected to have Coronavirus / COVID-19? No / Unsure 07/14/2021 8:18 AM EDT documented as of this encounter Miscellaneous Notes * Telephone Encounter - Lotus Zelaya CMA - 07/15/2021 4:31 PM EDT ----- Message from Lali Leblanc APRN-RETIREMENT SALES CONSULTANT sent at 07/15/2021 10:18 AM EDT ----- Lipid profile- good; CMP- WNL - recheck annually * Telephone Encounter - Lotus Zelaya CMA - 07/15/2021 4:31 PM EDT lvm informing patient of results. documented in this encounter Plan of Treatment Not on file documented as of this encounter Visit Diagnoses Not on filedocumented in this encounter Additional Health Concerns Assessment Noted Time PHQ-9 Depression Total Score: 25 021 9:00 AM EDT documented as of this encounter Care Teams Programming Instructor Relationship Specialty Start Date End Date No Pcp, [place] [address] PCP - General Family Medicine 01/07/23 documented as of this encounter
--- OUTSIDE RECORDS SUMMARY | 2025-06-10 04:41 | XMS_ITS | Patient Health Record ---
Author Organization [facility] vices Address [address], [place] [id number] Care Team Providers Care Student Activities Director Name Role Phone JoyceJohana padgett Primary Care Provider Taran Draper Unavailable [phone] Thien Urenassica Unavailable [phone] Allergies No Known Allergies Results Component Value Reference Range Notes Cologuard Reviewed date:04/28/2025 10:59:44 AM Interpretation: Performing Lab: Notes/Report: LIPID PANEL WITH REFLEX TO D IRECT LDL Reviewed date:04/15/2025 08:04:28 AM Interpretation: Performing Lab: Notes/Report: CHOLESTEROL 147 100-199 mg/dL TRIGLYCERIDES 114 20-149 mg/dL VLDL-CHOL, CALCULATED 23 <30 mg/dL HDL-CHOL 33 >=40 mg/dL LDL-CHOL, CALCULATED 91 <130 mg/dL ADULT LDL CHOLESTEROL CLASSIFICATION <100mg/dL Optimal 100-129mg/dL Near/Abo ve Optimal 130-159mg/dL Borderli ne High >160mg/dL High Risk Desirable range <100 mg/dL for patients with CHD or diabetes and <70 mg/dL for diabetic patients with known heart disease. Direct LDL is recommended for patients with triglycerides >400. LDL/HDL 2.8 <5.0 LDL/HDL RATIO MALE FEMALE below average risk <2.3 <2.3 average risk <5.0 <4.1 moderate risk <7.1 <5.6 high risk >7.1 >5.6 CHOL/HDL 4.5 2.0-4.5 COMPREHENSIVE METABOLIC PANE L WITH GFR Reviewed date:04/15/2025 08:04:12 AM Interpretation: Performing Lab: Notes/Report: GLUCOSE 99 70-100 mg/dL BUN 21 6-20 mg/dL CALCIUM 9.2 8.6-10.5 mg/dL CREATININE, BLOOD 1.12 0.67-1.30 mg/dL eGFR (2020 CKD-EPI) 82 >59 mL/min/1.73m2 SODIUM 141 135-148 mmol/L POTASSIUM 4.4 3.5-5.4 mmol/L CHLORIDE 108 96-107 mmol/L CO2 23 18-32 mmol/L ANION GAP 10 7-16 mmol/L T. BILIRUBIN 0.2 <1.3 mg/dL ALK PHOS 111 39-118 U/L AST-SGOT 16 9-50 U/L ALT-SGPT 13 5-41 U/L T. PROTEIN 6.7 6.0-8.3 g/dL ALBUMIN 4.3 3.5-5.2 g/dL HIV-1 2 COMBO AG/AB Reviewed date:04/15/2025 08:04:33 AM Interpretation: Performing Lab: Notes/Report: Negative for HIV-1 antigen and HIV-1/HIV-2 antibodies. No laboratory evidence of HIV infection. Does not exclude the possibility of exposure to or infection with HIV-1 and/or HIV-2 that are below the limit of detection of this assay. UNLESS OTHERWISE INDICATED, ALL TESTING PERFORMED AT: [employer] [address] [place] [address] [employer]: NAN MEYER M.D. CLIA NUMBER [id number] CAP ACCREDITATION AUID [id number] HIV-1,2 COMBO AG/AB Nonreactive Nonreactive HIV-1 p24 Ag Nonreactive Nonreactive HIV-1/HIV-2 Abs Nonreactive Nonreactive POCT A1C Reviewed date:04/14/2025 10:20:35 AM Interpretation: Performing Lab: Notes/Report: Reason For Referral Reason cyst on back progres sively worsening Diagnosis 1 Cyst of skin (L72.9) Referral Organization [facility] Referring Provider First Name Johana Referring Provider Last Name Joyce Referring Provider Speciality Family Med icine Referred Provider [facility] Rajan santillan Referred Provider Specialty Dermatology General Notes Cande Ibanez 10:50:00 AM >OON w/ pt. insurance. Referral Priority Routine Reason worsening cyst on ba ck Diagnosis 1 Cyst of skin and sub cutaneous tissue (L72.0) Referral Organization [facility] Referring Provider First Name Johana Referring Provider Last Name Joyce Referring Provider [facility] gallo Referred Provider Phoebe reyes Referred Provider Specialty Dermatology General Notes Marissa Espana 03/18 10:22:26 AM >Pt called stating they do not accept his insurance. Did find a hospital cna on his plan, Encounter sent to provider. Remington phillips Kasie 04/14/2025 08:52:16 AM >Provider sent referral elsewhere Referral Priority Routine Reason EXT #18 Diagnosis 1 Necrosis of pulp (K0 4.1) Referral Organization [facility] Referring Provider First Name Arin Referring Provider Last Name Romel [facility] Referred Provider [employer], ground instructor advanced Referred Provider Specialty Oral Surgery General Notes Arin Urena 03/18 10:57:56 AM >Hard copy given to the patient in operatory. Patient verbally understands referral process., Smita Rider 04/25/2025 03:50:48 PM >Marking referral as addressed due to having extraction #18 completed in office. Referral Priority Routine Reason cyst on back .. rece nt increase in size Diagnosis 1 Cyst of skin and sub cutaneous tissue (L72.0) Referral Organization [facility] Referring Provider First Name Johana Referring Provider Last Name Joyce Referring Provider [facility] gallo Referred Provider [facility] Referred Provider Specialty Dermatology General Notes Abi Macedo 04/15/20 01:35:26 PM >Referral office will be faxing over note today. Referral Priority Routine Medications Medication SIG (Take, Route, Frequency, Duration) Notes Start Date End Date Status Lexapro Not-Taking OLANZapine Not-Takin g [place] Carbonate No t-Taking HYDROcodone-Acetaminophen 5-325 MG 1 tablet as needed Orally every 6 hrs; Duration: 3 days 12/18/2023 Not-Taking Amoxicillin Not-Taki ng ARIPiprazole 10 MG 1 tablet Orally Once a day Not-Taking traZODone HCl 50 MG 1 tablet at bedtime as needed Orally Once a day Active Amoxicillin-Pot Clavulanate 875-125 MG 1 tablet Orally every 12 hrs; Duration: 5 days 03/31/2025 Not-Taking Vitamin B1 100 MG 1 tablet Orally Once a day Not-Taking Social History Tobacco Use: Social History Observation Description Date Details (start date - stop date) Current Smoker NA - NA Sex Assigned At : Social History Observation Description Sex Assigned At Male CAGE-AID Questionnaire (2018 Edition) Question Answer Notes Have you ever felt that you ought to cut down on your drinking or drug use? No patient entered data Have people annoyed you by c riticizing your drinking or drug use? No patient entered data Have you ever felt bad or gu ilty about your drinking or drug use? No patient entered data Have you ever had a drink or used drugs first thing in the morning to steady your nerves or to get rid of a hangover? No patient entered data CAGE-AID Score 0 Interpretation Negative PRAPARE Question Answer Notes Date Completed/Updated: 03/31/2025 moisés nt entered data What is your current housing situation? I have housing patient entered data Are you worried about losing your housing? No patient entered data What is the highest level of school that you have finished? 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 Check all that apply Medicine or any health care (medical, dental, mental health or vision) Has lack of transportation k ept you from medical appointments, meetings, work or from getting things needed for daily living? No How often do you see or talk to people that you care about and feel close to? (For example: talking to friends on the phone, visiting friends or family, going to pentecostal or club meetings) 3 to 5 times a week patient entered data How stressed are you? Stress is when someone feels tense, nervous, anxious, or can't sleep at night because their mind is troubled Not at all patient entered data In the past year have you sp ent more than 2 nights in a row in a skilled nursing, correction, group home center, or juvenile correctional facility? No patient entered magdalena a Are you a refugee? No patient en tered data What country are you from? [place] a te[place] entered data Do you feel physically and emotionally safe where you currently live? Yes patient entered data In the past year, have you b een afraid of your partner or ex-partner? No patient entered data PRAPARE Score: 4 Tobacco Control (Standard) Question Answer Notes Tobacco use: Current smoker How often do you smoke cigarettes? Every day How many cigarettes a day do you smoke? 6-10 Problems Problem Type SNOMED Code ICD Code Onset Dates Problem Status W/U Status Risk Notes Problem Tobacco user (244296848) Cigarette nicotine dependence without complication (F17.210) Active confirmed Problem BMI 25-29 - overweight (429774525) BMI 29.0-29.9,adult (Z68.29) Active confirmed Problem Obese class I (00007823810327 7) BMI 33.0-33.9,adult (Z68.33) Active confirmed Problem Body mass index 30.00 to 34.99 (52283988862491 7) BMI 34.0-34.9,adult (Z68.34) Active confirmed Problem Obesity (035207323) Obesity, Class I, BMI 30-34.9 (E66.9) Active confirmed Vital Signs Heart Rate 66 /min 05/01/2025 Temperature 98.5 degrees Fahrenheit 04/14/2025 Andie Thornton 04/14/2025 10:09:41 AM EDT > Respiratory Rate 18 /min 04/14/2025 Andie Greenberg 04/14/2025 10:09:41 AM EDT > Blood pressure diastolic 77 mm Hg 05/01/2025 Oximetry 93 % 04/14/2025 Kaylene Greenberg 04/14/2025 10:09:41 AM EDT > Height-cm 182.88 cm 05/01/2025 Weight-kg 111.13 kg 05/01/2025 Height 72 in 05/01/2025 Blood pressure systolic 124 mm Hg 05/01/2025 Weight 245 lbs 05/01/2025 BMI 33.22 kg/m2 05/01/2025 Encounters Encounter Location Date Provider Diagnosis Main [address] [place] [id number] 03/31/2025 Johana Joyce Tooth ache K08.89 ; Cyst of skin L72.9 ; Dietary counseling Z71.3 ; Exercise counseling Z71.82 ; Cigarette nicotine dependence without complication F17.210 ; Obesity, Class I, BMI 30-34.9 E66.811 and Financial difficulties Z59.9 [facility] [address], [place] [id number] 04/09/2025 Arin Urena BMI 34.0-34.9,adul t Z68.34 ; Cigarette nicotine dependence without complication F17.210 ; Encounter for screening for dental disorders Z13.84 ; Encounter for dental examination and cleaning with abnormal findings Z01.21 and Necrosis of pulp K04.[address] [place] [id number] 04/14/2025 Johana Joyce Encounter for wel lness examination Z00.00 ; Screening for diabetes mellitus Z13.1 ; Encounter for screening for HIV Z11.4 ; Screening for colon cancer Z12.11 ; Encounter for screening for cardiovascular disorders Z13.6 ; Dietary counseling Z71.3 ; Exercise counseling Z71.82 ; Cigarette nicotine dependence without complication F17.210 and Obesity, Class I, BMI 30-34.9 E66.9 [facility] [address], [place] [id number] 05/01/2025 Geromer Baron BMI 33.0-33.9,adul t Z68.33 ; Encounter for screening for dental disorders Z13.84 ; Encounter for dental examination and cleaning with abnormal findings Z01.21 ; Dietary counseling Z71.3 ; Exercise counseling Z71.82 and Cigarette nicotine dependence without complication F17.210 [address], [place] [id number] 03/31/2025 Johana Joyce Cyst of skin and subcutaneous tissue L72.0 [facility] [address], [place] [id number] 03/31/2025 Johana Joyce [facility] [address] [place] [address] 04/03/2025 Johana Joyce Cyst of skin and subcutaneous tissue L72.0 [facility] [address], [place] [id number] 04/03/2025 Arin Urena [place] [address] [place] [address] 05/02/2025 Johana Cook Assessments Encounter Date Diagnosis (ICD Code) Assessment Notes Treatment Notes Treatment Clinical Notes Section Notes 03/31/2025 Cyst of skin (ICD-10 - L72.9) Differential diagnosis includes epidermoid inclusion cyst, or cystic acne. Given the lesions long-standing presence and recent increase in size, a referral to dermatology is recommended for further evaluation. Pt was advised that These types of cysts are typically benign and may not require intervention unless they become symptomatic or infected. Advised patient to monitor for signs of infection (redness, pain, drainage) or rapid growth. Watchful waiting is appropriate at this time pending dermatologic evaluation. 03/31/2025 Tooth ache (ICD-10 - K08.89) Possible dental infection due to retained tooth fragment. At this time, prophylactic antibiotics initiated given concern for early infection. The patient is advised to follow up with a dentist. ContinueTylenol as needed for pain control. Monitor for worsening symptoms such as increased swelling, fever, or drainage. 03/31/2025 Cyst of skin and subcutaneous tissue (ICD-10 - L72.0) 04/03/2025 Cyst of skin and subcutaneous tissue (ICD-10 - L72.0) 04/09/2025 BMI 34.0-34.9,adult (ICD-10 - Z68.34) 04/14/2025 Screening for diabetes mellitus (ICD-10 - Z13.1) 04/14/2025 Encounter for wellness examination (ICD-10 - Z00.00) Pt is here for wellness today. Overall health is okay. I advised to get baseline tests and pt is agreeable for that. I advised regular exercise and eating a balanced diet with focus on eating less fried and fatty foods and eating more fresh fruits and vegetable in an attempt to achieve and maintain a healthy BMI and PVU 05/01/2025 BMI 33.0-33.9,adult (ICD-10 - Z68.33) 05/01/2025 Encounter for screening for dental disorders (ICD-10 - Z13.84) 04/09/2025 Cigarette nicotine dependence without complication (ICD-10 - F17.210) Patient provided with [phone] phone line. 04/14/2025 Encounter for screening for HIV (ICD-10 - Z11.4) 03/31/2025 Dietary counseling (ICD-10 - Z71.3) 03/31/2025 Exercise counseling (ICD-10 - Z71.82) 05/01/2025 Encounter for dental examination and cleaning with abnormal findings (ICD-10 - Z01.21) 04/09/2025 Encounter for screening for dental disorders (ICD-10 - Z13.84) 04/14/2025 Screening for colon cancer (ICD-10 - Z12.11) 04/14/2025 Encounter for screening for cardiovascular disorders (ICD-10 - Z13.6) 04/09/2025 Encounter for dental examination and cleaning with abnormal findings (ICD-10 - Z01.21) 03/31/2025 Cigarette nicotine dependence without complication (ICD-10 - F17.210) Patient provided with [phone]-Now phone line.Tobacco cessation program in [place] provided to pt 05/01/2025 Dietary counseling (ICD-10 - Z71.3) 05/01/2025 Exercise counseling (ICD-10 - Z71.82) 03/31/2025 Obesity, Class I, BMI 30-34.9 (ICD-10 - E66.811) 04/09/2025 Necrosis of pulp (ICD-10 - K04.1) 04/14/2025 Dietary counseling (ICD-10 - Z71.3) Encoruaged eating a healthy, balanced diet and increasing activity level by engaging in exercise atleast 30 min x atleast 5 days a week. Educational material was provided and patient was encouraged to use the resources to find the best options for a balanced diet. 04/14/2025 Exercise counseling (ICD-10 - Z71.82) 03/31/2025 Financial difficulties (ICD-10 - Z59.9) 05/01/2025 Cigarette nicotine dependence without complication (ICD-10 - F17.210) Patient provided with [phone]-Now phone line. 04/14/2025 Cigarette nicotine dependence without complication (ICD-10 - F17.210) Patient provided with [phone]-Now phone line. 04/14/2025 Obesity, Class I, BMI 30-34.9 (ICD-10 - E66.9) Plan Of Treatment Next Appt Details Provider Name:Taran Draper , 11/06/2025 08:45:00 AM, [address] [place] [address], [phone], Insurance Providers Payer Name Payer Address Payer Phone Subscriber Number Group Number Insured Name Patient Relationship to Insured Coverage Start Date Coverage End Date Bethanyerirasta alth [employer] [address] [facility] [address] [place] [address] [id number] Reinier Higginbotham Self - patient is the insured 4 [employer]hea [facility] [address] [place] [address] [id number] Reinier Higginbotham Self - patient is the insured 4 [employer] d [employer] after [employer] [facility] [address] [place], [place] [id number] Reinier Higginbotham Self - patient is the insured 4 Medicaid [employer] after [employer] [facility] [address] [place] [address] [id number] Reinier Higginbotham Self - patient is the insured 4 Medical (General) History Surgical History Surgery Date(Month/Year) total right knee repair 1999 and 2018 right meniscus repair 1999 right rotator cuff repair 2019
[2025-06-10] MEDS: CEFTRIAXONE 500 MG VIAL IM (05:13)
[2025-06-10] MEDS: LIDOCAINE HCL 1% PF 20 MG/2 ML VIAL INJ (05:13)
--- NOTE | 2025-06-10 05:31 | PC.NURSE ---
patient states he had new sexual partner monday and since then he had testical swellling and sore throat and cough. would like std testing
[2025-06-11 21:12] LABS: Neisseria gonorrhoeae, NAA Negative (Negative)
== END 2025-06-10 05:34 | disposition home or self-care (01) ==
PROVIDERS: Emergency Provider Internal Medicine
DX: N34.2 Other urethritis (principal); J02.9 Acute pharyngitis, unspecified
CPT/HCPCS: 36415; 80074; 87389; 87491; 87591; 96372; 99284; J0696